=== PATIENT | male | born 1985 | race African-American/Black ===

== ENCOUNTER 2016-12-16 12:41 | Emergency (ER) | payer OTHER ==
[~2016-12-16] VITALS: Ht 190.5 cm; Wt 150.0 kg
[~2016-12-16 12:41] MED LIST: GABA300C5 PO; LEVE500 PO; LISI-515 PO
[2016-12-16 12:42] VITALS: BP 126/75; PULSE 95; RESP 18; TEMP 98.3; O2SAT 93
[2016-12-16 12:48] VITALS: BP 126/75; PULSE 92; RESP 18; TEMP 98.7; O2SAT 95
[2016-12-16] MEDS ORDERED: SODIUM CHLOR 0.9% 1000 ML INJ 1,000 ML IV ONE (13:02)
--- NOTE | 2016-12-16 13:02 | PD ---
HPI Chief Complaint: Seizure Time Seen by Provider: 13:00 Travel History International Travel<30 days: No Contact w/Intl Traveler<30days: No Traveled to known affect area: No History of Present Illness HPI 31-year-old Afro-Cuban male brought in by ambulance status post seizure. 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 Patient is postictal but alert and oriented at this time. Patient is complaining of right shoulder pain, and a 3 out of 10 headache. He denies any other injury. Patient states he feels he has been compliant with his Keppra but he has a history of noncompliance in the past. He is also taking gabapentin. He denies any other acute medical history. Patient was last seen here mid October for similar presentation. He is allergic to Phenergan. PFSH Past Medical History Asthma: Yes Blood Disorders: No Bipolar Disorder: Yes Cardiovascular Problems: Yes (HTN) Diminished Hearing: No Gastrointestinal Disorders: No Headaches: Yes Heparin Induced Thrombocytopen: No Hypertension: Yes Implanted Vascular Access Dvce: No Neurologic: Yes (seizure disorder) Reproductive: No Respiratory: Yes (ASTHMA) Immunizations Current: Yes Seizures: Yes Past Surgical History Neurologic Surgery: No Oral Surgery: Yes (FRACTURE JAW REPAIR) Tympanostomy Tube: Yes Other Surgery: No Social History Alcohol Use: No Tobacco Use: Yes (1/4 PACK A DAY ) Substance Use: No Allergies-Medications (Allergen,Severity, Reaction): Coded Allergies: Phenergan (Verified Adverse Reaction, Severe, Psychosis, 11/02/16) Reported Meds & Prescriptions Reported Meds & Active Scripts Active Lisinopril 20 Mg Tab 20 Mg PO DAILY Keppra (Levetiracetam) 500 Mg Tab 500 Mg PO BID Gabapentin 300 Mg Cap 300 Mg PO TID Review of Systems Except as stated in HPI: all other systems reviewed are Neg General / Constitutional: No: Fever Eyes: No: Visual changes HENT: No: Headaches Cardiovascular: No: Chest Pain or Discomfort Respiratory: No: Shortness of Breath Gastrointestinal: No: Abdominal Pain Genitourinary: No: Dysuria Musculoskeletal: No: Pain Skin: No Rash Neurologic: No: Weakness Psychiatric: No: Depression Endocrine: No: Polydipsia Hematologic/Lymphatic: No: Easy Bruising Physical Exam Narrative GENERAL: Patient is postictal but no acute distress. SKIN: Warm and dry. Normal color. Normal turgor. No signs of trauma. HEAD: Atraumatic. Normocephalic. Nontender with palpation. EYES: Pupils equal and round. No scleral icterus. No injection or drainage. ENT: No nasal bleeding or discharge. Mucous membranes pink and moist. No dental injury. No buccal membrane or tongue injury. Airway is patent. Pharynx is normal. NECK: Trachea midline. No JVD. Supple nontender. CARDIOVASCULAR: Regular rate and rhythm. No murmurs gallops or rubs. RESPIRATORY: No accessory muscle use. Clear to auscultation. Breath sounds equal bilaterally. GASTROINTESTINAL: Abdomen soft, non-tender, nondistended. Hepatic and splenic margins not palpable. MUSCULOSKELETAL: Extremities without clubbing, cyanosis, or edema. No obvious deformities. Patient has moderate generalized tenderness to the right shoulder along the posterior aspect, without signs of dislocation or fracture. NEUROLOGICAL: Awake and alert. No obvious cranial nerve deficits. Motor grossly within normal limits. Five out of 5 muscle strength in the arms and legs. Normal speech. PSYCHIATRIC: Appropriate mood and affect; insight and judgment normal. Data Data Last Documented VS Vital Signs Date Time Temp Pulse Resp B/P Pulse Ox O2 Delivery O2 Flow Rate FiO2 12/16/16 12:48 98.7 92 18 126/75 95 Nasal Cannula 2 Orders Basic Metabolic Panel (Bmp) (12/16/16 13:02) Electrocardiogram (12/16/16 ) Ecg Monitoring (12/16/16 13:02) Iv Access Insert/Monitor (12/16/16 13:02) Oximetry (12/16/16 13:02) Sodium Chlor 0.9% 1000 Ml Inj (Ns 1000 M (12/16/16 13:02) Sodium Chloride 0.9% Flush (Ns Flush) (12/16/16 13:15) Shoulder, Complete (>2vws) (12/16/16 13:02) Levetiracetam Inj (Keppra Inj) (12/16/16 13:15) Levetiracetam (Keppra) (12/16/16 14:00) Labs Laboratory Tests Test 12/16/16 13:37 Sodium Level 140 MEQ/L Potassium Level 4.4 MEQ/L Chloride Level 109 MEQ/L Carbon Dioxide Level 27.3 MEQ/L Anion Gap 4 MEQ/L Blood Urea Nitrogen 11 MG/DL Creatinine 1.23 MG/DL Estimat Glomerular Filtration 84 ML/MIN Rate Random Glucose 72 MG/DL Calcium Level 9.0 MG/DL [facility] Medical Decision Making Medical Screen Exam Complete: Yes Emergency Medical Condition: Yes Differential Diagnosis Seizure. Postictal. Right shoulder injury. Muscle fracture. Narrative Course Patient is medically stable upon exam. CMP is ordered. IV access is obtained patient is given milligrams IV. X-ray of the right shoulder is ordered. X-rays unremarkable for acute process. CMP is normal. Patient is given 500 mg Keppra by mouth. Patient is felt stable for discharge. Patient follow with his neurologist as needed. Diagnosis Primary Impression: Seizure disorder Additional Impression: Right shoulder pain Qualified Code: M25.511 - Acute pain of right shoulder Referrals: Neurologist Patient Instructions: General Instructions Additional Instructions: Follow-up with Neurologist. Med/Other Pt SpecificInfo: No Change to Meds Disposition: 01 DISCHARGE HOME Condition: Stable Moncho Mason Dec 16, 2016 13:01
[2016-12-16] MEDS ORDERED: SODIUM CHLORIDE 0.9% FLUSH 5 ML FLUSH IVF PRN (13:15)
[2016-12-16] MEDS ORDERED: levETIRAcetam INJ 500 MG in SODIUM CHLORIDE 0.9% INJ 100 ML IV ONE (13:15)
--- NOTE | 2016-12-16 13:57 | PD ---
Data Data Last Documented VS Vital Signs Date Time Temp Pulse Resp B/P Pulse Ox O2 Delivery O2 Flow Rate FiO2 12/16/16 12:48 98.7 92 18 126/75 95 Nasal Cannula 2 Orders Basic Metabolic Panel (Bmp) (12/16/16 13:02) Electrocardiogram (12/16/16 ) Ecg Monitoring (12/16/16 13:02) Iv Access Insert/Monitor (12/16/16 13:02) Oximetry (12/16/16 13:02) Sodium Chlor 0.9% 1000 Ml Inj (Ns 1000 M (12/16/16 13:02) Sodium Chloride 0.9% Flush (Ns Flush) (12/16/16 13:15) Shoulder, Complete (>2vws) (12/16/16 13:02) Levetiracetam Inj (Keppra Inj) (12/16/16 13:15) Levetiracetam (Keppra) (12/16/16 14:00) MDM Supervised Visit with DELANO: Yes Narrative Course I, Dr. Álvarez, have reviewed the advance practice practioner's documentation and am in agreement, met with the patient face to face, made the diagnosis, and the medical decision making was done by me. *My assessment and Findings: 31 year-old -[place]ian male with history of seizure disorder on Keppra ran out of his Keppra 3 days ago. Had seizure on the way to the pharmacy. Patient initially postictal but now back to mental status baseline and notes only right sided shoulder pain. History of previous surgery to the shoulder. Pain is made worse with external rotation and abduction greater than 90. Otherwise exam unremarkable. Differential includes medication nonadherence, breakthrough seizure, electrolyte abnormality , rotator cuff strain, chronic right shoulder pain, shoulder dislocation and/or fracture. Will give oral Keppra, obtain x-ray and BMP for hopeful disposition home. Kenya Álvarez MD Dec 16, 2016 13:57 allergic to Phenergan. Kenya Álvarez MD Dec 16, 2016 13:57
[2016-12-16] MEDS ORDERED: levETIRAcetam 500 MG TAB PO ONE (14:00)
[2016-12-16 14:09] LABS: BICARBONATE 27.3 MEQ/L (21.0-32.0); POTASSIUM 4.4 MEQ/L (3.5-5.1)
[2016-12-16 14:39] VITALS: O2SAT 95
--- NOTE | 2016-12-16 14:45 | RADRPT ---
EXAM DATE/TIME: 12/16/2016 13:45 [facility] COMPARISON: SHOULDER RIGHT COMPLETE (>2VWS), February 03, 2013, 23:12. INDICATIONS: Pain in shoulder post seizure. MEDICAL HISTORY: None. SURGICAL HISTORY: None. ENCOUNTER: Initial ACUITY: 1 day PAIN SCORE: 3/10 LOCATION: Right shoulder. FINDINGS: There is a Hill-Sachs deformity of the humeral head with degenerative changes about the glenoid. Acute fracture is not appreciated. CONCLUSION: Degenerative changes. Jordi Sma MD FACR on December 16, 2016 at 14:11 Board Certified Radiologist. This report was verified electronically.
[2017-04-06] MEDS ORDERED: LISI-515 PO ×2 (10:55→10:56)
== END 2016-12-16 14:39 | disposition home or self-care (01) ==
LOC: NEPE 12:41
DX: R56.9 Unspecified convulsions (principal); M25.511 Pain in right shoulder; R51 Headache; J45.909 Unspecified asthma, uncomplicated; I10 Essential (primary) hypertension; F17.210 Nicotine dependence, cigarettes, uncomplicated
CPT/HCPCS: 73030; 80048

== ENCOUNTER 2016-12-30 13:48 | Emergency (ER) | payer OTHER ==
[~2016-12-30] VITALS: Ht 188 cm; Wt 114.0 kg
--- NOTE | 2016-12-30 14:11 | PD ---
HPI Chief Complaint: SEIZURE Time Seen by Provider: 14:11 Travel History International Travel<30 days: No Contact w/Intl Traveler<30days: No History of Present Illness HPI 31-year-old male with a history of seizure disorder and hypertension is brought to the emergency department by EMS for evaluation of fall. Per EMS report the patient was found unresponsive with bleeding from his mouth in the parking lot of [employer] at the mall. Bystanders called EMS because the patient was found unresponsive, bystander reported that there may have been some seizure-like activity. EMS reports that the patient was initially unresponsive and postictal but has been waking up and becoming more responsive since initial evaluation. Patient is now awake and able to tell me that he did have a seizure today. States that he last took his Keppra 1 week ago. He is complaining of pain in his mouth and a headache. He denies any nausea or vomiting, lightheadedness, dizziness, neck pain, back pain, numbness or tingling , weakness, chest pain, shortness breath, abdominal pain. No urinary or bowel incontinence. He denies alcohol or drug use. No other complaints. PFSH Past Medical History Asthma: Yes Blood Disorders: No Bipolar Disorder: Yes Cardiovascular Problems: Yes (HTN) Diminished Hearing: No Gastrointestinal Disorders: No Headaches: Yes Heparin Induced Thrombocytopen: No Hypertension: Yes Implanted Vascular Access Dvce: No Neurologic: Yes (seizure disorder) Reproductive: No Respiratory: Yes (ASTHMA) Immunizations Current: Yes Seizures: Yes Past Surgical History Neurologic Surgery: No Oral Surgery: Yes (FRACTURE JAW REPAIR) Tympanostomy Tube: Yes Other Surgery: No Social History Alcohol Use: No Tobacco Use: Yes (1/4 PACK A DAY ) Substance Use: No Allergies-Medications (Allergen,Severity, Reaction): Coded Allergies: Phenergan (Verified Adverse Reaction, Severe, Psychosis, 12/30/16) Reported Meds & Prescriptions Reported Meds & Active Scripts Active Amoxicillin 875 Mg Tab 875 Mg PO BID 10 Days Keppra (Levetiracetam) 500 Mg Tab 500 Mg PO BID Lisinopril 20 Mg Tab 20 Mg PO DAILY Keppra (Levetiracetam) 500 Mg Tab 500 Mg PO BID Gabapentin 300 Mg Cap 300 Mg PO TID Review of Systems Except as stated in HPI: all other systems reviewed are Neg Physical Exam Narrative GENERAL: Well-nourished and well-developed pleasant patient in no acute distress. Backboarded initially with no cervical collar in place per EMS report no size was big enough to fit the patient. SKIN: Facial abrasions. Laceration to inner lower lip. HEAD: Normocephalic and atraumatic. Swelling of the upper lip with abrasions and tenderness of the maxilla. EYES: No scleral icterus, injection, or drainage. PERRLA. EOMI. No hyphema present. ENT: Left upper anterior front tooth has been knocked out. No septal hematoma or hemotympanum noted. Oropharynx is clear and the airway is patent. NECK: Supple and the trachea is midline. No obvious deformities, crepitus, or midline tenderness noted. CARDIOVASCULAR: Regular rate and rhythm. RESPIRATORY: Breath sounds are equal bilaterally with no accessory muscle use, wheezing, rhonchi, or crackles. GASTROINTESTINAL: Abdomen is soft, non-tender, and nondistended. MUSCULOSKELETAL: No obvious deformities, swelling, cyanosis, or ecchymosis is present throughout the upper and lower extremities. Patient has full range of motion without any signs of neurovascular compromise. Strength 5/5 upper and lower extremities and equal bilaterally. BACK: Nontender without any obvious deformities, bony point tenderness, or crepitus noted throughout the thoracic and lumbar vertebrae. NEUROLOGICAL: Awake, alert, and oriented. Normal speech and gait. Cranial nerves are grossly intact. Data Data Last Documented VS Vital Signs Date Time Temp Pulse Resp B/P Pulse Ox O2 Delivery O2 Flow Rate FiO2 12/30/16 18:08 100 Room Air 12/30/16 18:08 71 20 139/86 12/30/16 14:28 98.5 Orders Complete Blood Count With Diff (12/30/16 14:09) Basic Metabolic Panel (Bmp) (12/30/16 14:09) Electrocardiogram (12/30/16 ) Ct Brain W/O Iv Contrast(Rout) (12/30/16 ) Ecg Monitoring (12/30/16 14:09) Iv Access Insert/Monitor (12/30/16 14:09) Oximetry (12/30/16 14:09) Ct Cerv Spine W/O Contrast (12/30/16 14:09) Ct Facial Bones W/O Iv Cont (12/30/16 14:09) Tetanus/Diphtheria Tox Adult (Tetanus/Di (12/30/16 17:30) Levetiracetam (Keppra) (12/30/16 17:30) Lidocai-Epi 1%-1:100,000 Inj (Xylocaine- (12/30/16 17:45) Labs Laboratory Tests Test 12/30/16 17:05 White Blood Count 8.9 TH/MM3 Red Blood Count 5.63 MIL/MM3 Hemoglobin 13.8 GM/DL Hematocrit 42.4 % Mean Corpuscular Volume 75.4 FL Mean Corpuscular Hemoglobin 24.4 PG Mean Corpuscular Hemoglobin 32.4 % Concent Red Cell Distribution Width 16.3 % Platelet Count 310 TH/MM3 Mean Platelet Volume 7.4 FL Neutrophils (%) (Auto) 77.5 % Lymphocytes (%) (Auto) 14.2 % Monocytes (%) (Auto) 5.6 % Eosinophils (%) (Auto) 2.3 % Basophils (%) (Auto) 0.4 % Neutrophils # (Auto) 6.9 TH/MM3 Lymphocytes # (Auto) 1.3 TH/MM3 Monocytes # (Auto) 0.5 TH/MM3 Eosinophils # (Auto) 0.2 TH/MM3 Basophils # (Auto) 0.0 TH/MM3 CBC Comment AUTO DIFF Differential Comment AUTO DIFF CONFIRMED Platelet Estimate NORMAL Platelet Morphology Comment NORMAL Sodium Level 139 MEQ/L Potassium Level 4.2 MEQ/L Chloride Level 106 MEQ/L Carbon Dioxide Level 26.2 MEQ/L Anion Gap 7 MEQ/L Blood Urea Nitrogen 10 MG/DL Creatinine 0.90 MG/DL Estimat Glomerular Filtration 120 ML/MIN Rate Random Glucose 84 MG/DL Calcium Level 9.2 MG/DL MDM Medical Decision Making Medical Screen Exam Complete: Yes Emergency Medical Condition: Yes Differential Diagnosis Seizure disorder versus facial fracture versus contusion versus medication noncompliance Narrative Course 31-year-old male presents to the emergency room by EMS for evaluation of fall secondary to seizure. Patient is afebrile, vital signs are stable. The patient reports that he has not taken his Keppra in the past week and in that he does report having a seizure today. He apparently fell onto his face. There is evidence of biting his lower lip. He did also lose the left upper anterior tooth. No focal neurologic deficits. CT imaging of the head, facial bones and cervical spine has been ordered and is pending. IV access is obtained , labs have been drawn and sent. Head CT is negative for any Abnormalities. CT of the maxillofacial bones is negative for any acute abnormalities. CT of cervical spine is negative for any acute abnormality. CBC and BMP are unremarkable. Patient has remained stable and without complaint while here in the emergency department. Laceration repair of lower lip laceration is performed, see procedure narrative. Patient is given an oral dose of Keppra 500 mg here in the emergency department. He's had no further seizures while here in the ED. The patient has had a breakthrough seizure secondary to medication noncompliance. Chest the importance of compliance with medication regimen and outpatient follow-up. I discussed the case with my attending physician Dr. Martinez who is aware of the patients history, physical examination findings, and treatment plan. Procedures Procedure Narrative LACERATION LOCATION: Lower inner lip LENGTH: 2 cm NUMBER OF STITCHES/BONIFACIO: 4 sutures REPAIR: The area of the laceration was prepped with Betadine and sterilely draped. The laceration was infiltrated with 1% lidocaine with epinephrine. The wound was copiously irrigated and explored without evidence of foreign body , tendon injury or neurovascular injury. The wound was closed using 4. 0 Vicryl sutures. This was a single layer repair. A sterile dressing was applied. The patient was advised to keep the dressing clean and dry. Patient tolerated the procedure well. Diagnosis Primary Impression: Seizure disorder Additional Impressions: Non-compliance Lip laceration Qualified Code: S01.511A - Lip laceration, initial encounter Tooth avulsion Qualified Code: S03.2XXA - Tooth avulsion, initial encounter Referrals: Dentist Neurologist Patient Instructions: General Instructions Additional Instructions: Apply ice 20 minutes on 20 minutes off to decrease swelling in the lip. Take medications as prescribed with food and a full glass of water. Follow-up with your Dentist and neurologist. Return to the ED for any acute worsening of symptoms. Med/Other Pt SpecificInfo: Prescription(s) given Scripts Amoxicillin 875 Mg [id number] Mg PO BID 10 Days Ref 0 Prov:Hafsa Martinez MD 12/30/16 Levetiracetam (Keppra)500 Mg [id number] Mg PO BID #60 TAB Ref 0 Prov:Hafsa Martinez MD 12/30/16 Disposition: 01 DISCHARGE HOME Condition: Stable Rachna Harrington Dec 30, 2016 14:11
[2016-12-30 14:28] VITALS: BP 148/88; PULSE 75; RESP 16; TEMP 98.5; O2SAT 99
--- NOTE | 2016-12-30 15:16 | RADRPT ---
EXAM DATE/TIME: 12/30/2016 14:42 [facility] COMPARISON: CT CERVICAL SPINE W/O CONTRAST, December 30, 2016, 14:44. CT BRAIN W/O CONTRAST, September 11, 2016, 2 0:59. INDICATIONS : Found unrepsonsive; fall; postictal. RADIATION DOSE: 56.35 CTDIvol (mGy) MEDICAL HISTORY : Seizures. Cardiovascular disease Hypertension. SURGICAL HISTORY : Mandible surgery. ENCOUNTER: Initial ACUITY: 1 day PAIN SCALE: Non-responsive LOCATION: cranial TECHNIQUE: Multiple contiguous axial images were obtained of the head. Using automated exposure control and adj ustment of the mA and/or kV according to patient size, radiation dose was kept as low as reasonably a chievable to obtain optimal diagnostic quality images. FINDINGS: CEREBRUM: The ventricles are normal for age. No evidence of midline shift, mass lesion, hemorrhage or acute in farction. No extra-axial fluid collections are seen. POSTERIOR FOSSA: The cerebellum and brainstem are intact. The 4th ventricle is midline. The cerebellopontine angle i s unremarkable. EXTRACRANIAL: The visualized portion of the orbits is intact. SKULL: The calvaria is intact. No evidence of skull fracture. CONCLUSION: No acute intracranial findings. Hans Samayoa MD on December 30, 2016 at 15:11 Board Certified Radiologist. This report was verified electronically.
--- NOTE | 2016-12-30 15:26 | RADRPT ---
EXAM DATE/TIME: 12/30/2016 14:42 [facility] COMPARISON: CT FACIAL BONES W/O CONTRAST, November 03, 2012, 15:46. INDICATIONS : Found unrepsonsive; fall; postictal. RADIATION DOSE: 21.96 CTDIvol (mGy) MEDICAL HISTORY : Hypertension. Seizures. Cardiovascular disease SURGICAL HISTORY : Mandible surgery ENCOUNTER: Initial ACUITY: 1 day PAIN SCORE: Non-responsive LOCATION: facial TECHNIQUE: Volumetric scanning of the facial bones was performed. Using automated exposure control and adjustme nt of the mA and/or kV according to patient size, radiation dose was kept as low as reasonably achiev able to obtain optimal diagnostic quality images. FINDINGS: ORBITS: The orbital and infraorbital osseous structures are intact. The retroconal structures have a normal configuration. No radiopaque foreign bodies are seen. NASAL BONE: The nasal bone and maxillary spine are intact ZYGOMATIC ARCHES: Symmetric without evidence of fracture. SINUSES: The maxillary, ethmoid and frontal sinuses are intact. No air-fluid levels seen. NASAL CAVITY: The nasal septum is intact and midline. The lacrimal ducts are intact. SOFT TISSUES: No radiopaque foreign bodies seen. No soft-tissue swelling is seen. INTRACRANIAL: No intracranial air seen. OTHER: Evidence of old mandibular fracture with internal fixation plate and transfixing screws in place in t he body of the mandible. Deformity of the mandibular condyles indicating old healed fractures. There is prominent medial angulation of the mandibular condyles bilaterally. Old left mandibular coronoid p rocess fracture. Absent left sided first maxillary incisor. CONCLUSION: 1. No acute fractures identified. 2. Evidence of old mandibular fractures with metallic plate in the body the mandible and deformity of the mandibular condyles with medial angulation bilaterally. Hans Samayoa MD on December 30, 2016 at 15:15 Board Certified Radiologist. This report was verified electronically.
--- NOTE | 2016-12-30 15:39 | RADRPT ---
EXAM DATE/TIME: 12/30/2016 14:44 [facility] COMPARISON: CT CERVICAL SPINE W/O CONTRAST, November 24, 2014, 0:00. INDICATIONS : Found unrepsonsive; fall; postictal. RADIATION DOSE: 28.88 CTDIvol (mGy) MEDICAL HISTORY : Seizures. Hypertension. Cardiovascular disease SURGICAL HISTORY : Mandible surgery ENCOUNTER: Initial ACUITY: 1 day PAIN SCALE: Non-responsive LOCATION: neck TECHNIQUE: Volumetric scanning of the cervical spine was performed. Multiplanar reconstructions in the sagittal, coronal and oblique axial planes were performed. Using automated exposure control and adjustment o f the mA and/or kV according to patient size, radiation dose was kept as low as reasonably achievable to obtain optimal diagnostic quality images. FINDINGS: VERTEBRAE: Normal vertebral body height. ALIGNMENT: No evidence of subluxation. C2-C3: Broad-based disc osteophyte complex. Bilateral facet arthrosis. Central canal diameter within normal limits. Neural foraminal diameter is within normal limits. C3-C4: Central disc protrusion. New when compared to prior study Mild central canal narrowing. Neural forami nal diameter is within normal limits. C4-C5: No evidence of focal disc protrusion. Central canal normal diameter. Neural foraminal diameters withi n normal limits. C5-C6: Broad-based disc osteophyte complex. Central canal diameter within normal limits. Neural foraminal di ameters within normal limits. Mild right-sided facet arthrosis. C6-C7: No evidence of focal disc protrusion. Central canal normal diameter. Neural foraminal diameters withi n normal limits. C7-T1: No evidence of focal disc protrusion. Central canal normal diameter. Neural foraminal diameters withi n normal limits. CONCLUSION: 1. No evidence of fracture. 2. Degenerative findings of the cervical spine. Central disc protrusion at C3-4 resulting in mild roxana tral canal narrowing. Hans Samayoa MD on December 30, 2016 at 15:25 Board Certified Radiologist. This report was verified electronically.
[2016-12-30 17:22] LABS: AUTOMATED NEUTROPHIL # 6.9 TH/MM3 (1.8-7.7); BASOPHIL % 0.4 % (0.0-2.0); EOSINOPHIL # 0.2 TH/MM3 (0-0.4); EOSINOPHIL % 2.3 % (0.0-4.0); HEMATOCRIT 42.4 % (39.0-51.0); LYMPH % 14.2 % (9.0-44.0); LYMPHOCYTE # 1.3 TH/MM3 (1.0-4.8); MEAN CELL VOLUME 75.4 FL (80.0-100.0); MEAN CORPUSCULAR HEMOGLOBIN 24.4 PG (27.0-34.0); MEAN CORPUSCULAR HGB CONC 32.4 % (32.0-36.0); MONO % 5.6 % (0.0-8.0); NEUT % 77.5 % (16.0-70.0); PLATELET COUNT 310 TH/MM3 (150-450); RED BLOOD COUNT 5.63 MIL/MM3 (4.50-5.90); RED CELL DISTRIBUTION WIDTH 16.3 % (11.6-17.2); WHITE BLOOD COUNT 8.9 TH/MM3 (4.0-11.0)
[2016-12-30 17:30] LABS: HEMO FLAGS AUTO DIFF
[2016-12-30] MEDS ORDERED: TETANUS/DIPHTHERIA TOXOID ADULT 0.5 ML VIAL IM ONE (17:30)
[2016-12-30] MEDS ORDERED: levETIRAcetam 500 MG TAB PO ONE (17:30)
[2016-12-30] MEDS ORDERED: LIDOCAINE 1%/EPINEPHrine 1:100,000 SOLN 20 ML VIAL INFIL ONE (17:45)
[2016-12-30 17:49] LABS: BICARBONATE 26.2 MEQ/L (21.0-32.0); POTASSIUM 4.2 MEQ/L (3.5-5.1)
[2016-12-30 18:08] VITALS: BP 139/86; PULSE 71; RESP 20; O2SAT 100
[2016-12-30] MEDS ORDERED: LEVE500 PO (18:57)
[2016-12-30] MEDS ORDERED: AMOX875T PO (18:57)
[2016-12-30 18:58] LABS: PLATELET ESTIMATE SMEAR NORMAL (NORMAL); PLATELET MORPHOLOGY NORMAL (NORMAL); SCAN/DIFF AUTO DIFF CONFIRMED
--- NOTE | 2017-01-01 12:26 | EKG ---
Date Performed: 12/30/2016 Time Performed: 17:59:38 PTAGE: 31 years EKG: Sinus rhythm Since previous tracing, no significant change noted NORMAL ECG PREVIOUS TRACING : 07/07/2016 23.59 DOCTOR: Cornell Pino Interpretating Date/Time 01/01/2017 12:24:48
[2017-04-06] MEDS ORDERED: LISI-515 PO ×2 (10:55→10:56)
== END 2016-12-30 20:32 | disposition home or self-care (01) ==
LOC: NEPC 13:48
DX: R56.9 Unspecified convulsions (principal); S03.2XXA Dislocation of tooth, initial encounter; S01.511A Laceration without foreign body of lip, initial encounter; S00.91XA Abrasion of unspecified part of head, initial encounter; J45.909 Unspecified asthma, uncomplicated; I10 Essential (primary) hypertension; F17.210 Nicotine dependence, cigarettes, uncomplicated; Z91.14 Patient's other noncompliance with medication regimen; Z23 Encounter for immunization
CPT/HCPCS: 12011; 70450; 70486; 72125; 80048; 85025; 90471; 90714; 93005

== ENCOUNTER 2017-01-13 19:14 | Emergency (ER) | payer OTHER ==
[~2017-01-13] VITALS: Ht 190.5 cm; Wt 150.0 kg
[~2017-01-13 19:14] MED LIST changes: +AMOX875T PO
[2017-01-13 19:21] VITALS: BP 142/82; PULSE 80; RESP 16; TEMP 98.6; O2SAT 100
[2017-01-13] MEDS ORDERED: LORazepam 2 MG/ML VIAL IV PUSH PRN (19:45)
--- NOTE | 2017-01-13 19:47 | PD ---
HPI . Seizure Chief Complaint: Seizure Time Seen by Provider: 19:29 Travel History International Travel<30 days: No Contact w/Intl Traveler<30days: No Traveled to known affect area: No History of Present Illness HPI Patient presents status post seizure. He has a known seizure disorder. He is on Keppra and gabapentin for his seizure disorder and states that he has been compliant. He denies any injury associated with the seizure. PFSH Past Medical History Asthma: Yes Blood Disorders: No Bipolar Disorder: Yes Cardiovascular Problems: Yes (HTN) Diminished Hearing: No Gastrointestinal Disorders: No Headaches: Yes Heparin Induced Thrombocytopen: No Hypertension: Yes Implanted Vascular Access Dvce: No Neurologic: Yes (seizure disorder) Reproductive: No Respiratory: Yes (ASTHMA) Immunizations Current: Yes Pneumonia: Yes Seizures: Yes Tetanus Vaccination: < 5 Years Influenza Vaccination: Yes Past Surgical History Neurologic Surgery: No Oral Surgery: Yes (FRACTURE JAW REPAIR) Tympanostomy Tube: Yes Other Surgery: No Social History Alcohol Use: No Tobacco Use: Yes (3-4 CIGARETTES PER DAY) Substance Use: No Allergies-Medications (Allergen,Severity, Reaction): Coded Allergies: Phenergan (Verified Adverse Reaction, Severe, Psychosis, 01/13/17) Reported Meds & Prescriptions Reported Meds & Active Scripts Active Lisinopril 20 Mg Tab 20 Mg PO DAILY Keppra (Levetiracetam) 500 Mg Tab 500 Mg PO BID Gabapentin 300 Mg Cap 300 Mg PO TID Review of Systems Except as stated in HPI: all other systems reviewed are Neg Eyes: No: Blurred Vision HENT: No: Headaches Musculoskeletal: No: Myalgias, Arthralgias Neurologic: Positive: Seizures, No: Focal Abnormalities, Incontinence Physical Exam Narrative GENERAL: Patient is currently awake and alert and in no acute distress. SKIN: Warm and dry. HEAD: Atraumatic. Normocephalic. EYES: Pupils equal and round. ENT: No nasal bleeding or discharge. Mucous membranes pink and moist. He has some swelling of his lower lip secondary to a lip laceration which he sustained when his last seizure December 30. No new injury to the mouth. NECK: Trachea midline. Neck is supple. CARDIOVASCULAR: Regular rate and rhythm. Heart sounds are normal. RESPIRATORY: No accessory muscle use. Lungs GASTROINTESTINAL: Abdomen soft, non-tender, nondistended. MUSCULOSKELETAL: No obvious deformities. No edema. NEUROLOGICAL: Awake and alert. No obvious cranial nerve deficits. Motor grossly within normal limits. Normal speech. PSYCHIATRIC: Appropriate mood and affect; insight and judgment normal. Data Data Last Documented VS Vital Signs Date Time Temp Pulse Resp B/P Pulse Ox O2 Delivery O2 Flow Rate FiO2 01/13/17 19:21 98.6 80 16 142/82 100 Room Air Orders Levetiracetam (01/13/17 19:41) ^ Saline Lock (01/13/17 19:41) Lorazepam Inj (Ativan Inj) (01/13/17 19:45) MDM Medical Decision Making Medical Screen Exam Complete: Yes Emergency Medical Condition: Yes Medical Record Reviewed: Yes Differential Diagnosis Differential diagnosis includes breakthrough seizure, medication noncompliance, head injury, electrolyte disturbance. Narrative Course Patient presents status post a seizure. It sounds like he had his usual seizure. He reports compliance with medication. We are unable to check a Keppra level here so I have ordered that. I have ordered PRN Ativan. 22:15 no further sz activity. I am told that we will not have the results of the Keppra level tonight. Diagnosis Primary Impression: Seizure disorder Patient Instructions: General Instructions, Recurrent Seizures in Adults (DC) Disposition: 01 DISCHARGE HOME Condition: Stable Joelle Velez MD Jan 13, 2017 19:47
[2017-01-13 22:49] VITALS: BP 134/68; PULSE 80; RESP 16; O2SAT 100
[2017-04-06] MEDS ORDERED: LISI-515 PO ×2 (10:55→10:56)
== END 2017-01-13 23:01 | disposition home or self-care (01) ==
LOC: NEPC 19:14
DX: G40.909 Epilepsy, unspecified, not intractable, without status epilepticus (principal); I10 Essential (primary) hypertension; F17.210 Nicotine dependence, cigarettes, uncomplicated
CPT/HCPCS: 80177; 99284

== ENCOUNTER 2017-01-26 23:18 | Emergency (ER) | payer OTHER ==
[~2017-01-26 23:18] MED LIST changes: -AMOX875T PO
--- NOTE | 2017-01-26 23:20 | PD ---
HPI Chief Complaint: seizure Time Seen by Provider: 23:20 Travel History International Travel<30 days: No Contact w/Intl Traveler<30days: No Traveled to known affect area: No History of Present Illness HPI 32-year-old male who is well-known to the department due to his multiple visits came to the emergency room brought by EMS after having a seizure at work. Patient is not very forthcoming with the history. His vital signs as per EMS were stable. He is on Keppra and gabapentin for his seizures he said. He takes them like he supposed to and he has medications at home as well. His last dose was this afternoon. Currently he is awake. [facility] Past Medical History Narrative Medical List of his past medical, surgical, social and family history is reviewed from the nursing note. Asthma: Yes Blood Disorders: No Bipolar Disorder: Yes Cardiovascular Problems: Yes (HTN) Diminished Hearing: No Gastrointestinal Disorders: No Headaches: Yes Heparin Induced Thrombocytopen: No Hypertension: Yes Implanted Vascular Access Dvce: No Neurologic: Yes (seizure disorder) Reproductive: No Respiratory: Yes (ASTHMA) Immunizations Current: Yes Pneumonia: Yes Seizures: Yes Past Surgical History Neurologic Surgery: No Oral Surgery: Yes (FRACTURE JAW REPAIR) Tympanostomy Tube: Yes Other Surgery: No Social History Alcohol Use: No Tobacco Use: Yes (3-4 CIGARETTES PER DAY) Substance Use: No Allergies-Medications (Allergen,Severity, Reaction): Coded Allergies: Phenergan (Verified Adverse Reaction, Severe, Psychosis, 01/27/17) Comments List of his allergies reviewed from the nursing note. Reported Meds & Prescriptions Reported Meds & Active Scripts Active Keppra (Levetiracetam) 1,000 Mg Tab 1,000 Mg PO BID Lisinopril 20 Mg Tab 20 Mg PO DAILY Keppra (Levetiracetam) 500 Mg Tab 500 Mg PO BID Gabapentin 300 Mg Cap 300 Mg PO TID Narrative Medication List of his home medications reviewed from the nursing note. Review of Systems Except as stated in HPI: all other systems reviewed are Neg Physical Exam Narrative GENERAL: Awake, alert, morbidly obese, no obvious distress SKIN: Warm and dry. HEAD: Atraumatic. Normocephalic. EYES: Pupils equal and round. No scleral icterus. No injection or drainage. ENT: No nasal bleeding or discharge. Mucous membranes pink and moist. No tongue on the bite NECK: Trachea midline. No JVD. CARDIOVASCULAR: Regular rate and rhythm. No murmur appreciated. RESPIRATORY: No accessory muscle use. Clear to auscultation. Breath sounds equal bilaterally. GASTROINTESTINAL: Abdomen soft, non-tender, nondistended. Hepatic and splenic margins not palpable. MUSCULOSKELETAL: No obvious deformities. No clubbing. No cyanosis. No edema. NEUROLOGICAL: Awake and alert. No obvious cranial nerve deficits. Motor grossly within normal limits. Normal speech. PSYCHIATRIC: Appropriate mood and affect; insight and judgment normal. Data Data Last Documented VS Vital Signs Date Time Temp Pulse Resp B/P Pulse Ox O2 Delivery O2 Flow Rate FiO2 01/26/17 23:30 98.8 85 20 162/83 97 01/26/17 23:30 Room Air Orders MDM Medical Decision Making Medical Screen Exam Complete: Yes Emergency Medical Condition: Yes Medical Record Reviewed: Yes Differential Diagnosis Seizure disorder Narrative Course 12:02 AM patient has remained seizure free. His last set of blood test was done on the of last month which was less than 2 weeks ago. They were all within normal limits. I'm comfortable discharging him home. Procedures EKG Prior to Arrival: No Diagnosis Primary Impression: Seizure disorder Additional Impression: Morbid obesity Qualified Code: E66.01 - Morbid obesity, unspecified obesity type Referrals: Primary Care Physician 3 days Additional Instructions: Take double the dose of the Keppra than what you have been taking which will be 1000 mg twice a day and stop taking the previous dose. Not be driving or swimming until you have been cleared by a neurologist. Follow-up with the neurologist. Med/Other Pt SpecificInfo: Prescription(s) given, Other (Keppra changed to 1000 mg twice a day instead of 500 mg twice a day) Scripts Levetiracetam (Keppra)1,000 Mg Tab1,000 Mg PO BID #60 TAB Ref 0 Prov:Delgado Lantigua MD 01/27/17 Disposition: 01 DISCHARGE HOME Condition: Stable Delgado Lantigua MD Jan 26, 2017 23:20
[2017-01-26 23:30] VITALS: BP 162/83; PULSE 85; RESP 20; TEMP 98.8; O2SAT 97
[2017-01-27] MEDS ORDERED: KEPP10002 PO (00:06)
[2017-04-06] MEDS ORDERED: LISI-515 PO ×2 (10:55→10:56)
== END 2017-01-27 00:41 | disposition home or self-care (01) ==
LOC: NEPA 23:18
DX: G40.909 Epilepsy, unspecified, not intractable, without status epilepticus (principal); E66.01 Morbid (severe) obesity due to excess calories; F17.210 Nicotine dependence, cigarettes, uncomplicated
CPT/HCPCS: 99284

== ENCOUNTER 2017-01-27 04:44 | Emergency (ER) | payer OTHER ==
[~2017-01-27] VITALS: Ht 177.8 cm; Wt 100.0 kg
[~2017-01-27 04:44] MED LIST changes: +KEPP10002 PO
[2017-01-27 04:51] VITALS: PULSE 75
--- NOTE | 2017-01-27 05:24 | PD ---
HPI Chief Complaint: Medical Clearance Time Seen by Provider: 05:04 Travel History International Travel<30 days: No Contact w/Intl Traveler<30days: No Traveled to known affect area: No History of Present Illness HPI Patient is a 32-year-old male who is here multiple times for seizures. He takes Keppra and gabapentin for his seizures. Per EMS he was arguing with police today when he lowered himself to the ground and acted as if he was having a seizure. There is no post ictal period witnessed. Patient refused any vitals or treatment by EMS. On arrival to the ED, he is refusing to speak to the physician or nursing staff. Instead he is threatening staff and covering his head with a sheet. PFSH Past Medical History Asthma: Yes Blood Disorders: No Bipolar Disorder: Yes Cardiovascular Problems: Yes (HTN) Diminished Hearing: No Gastrointestinal Disorders: No Headaches: Yes Heparin Induced Thrombocytopen: No Hypertension: Yes Implanted Vascular Access Dvce: No Neurologic: Yes (seizure disorder) Reproductive: No Respiratory: Yes (ASTHMA) Immunizations Current: Yes Pneumonia: Yes Seizures: Yes Past Surgical History Neurologic Surgery: No Oral Surgery: Yes (FRACTURE JAW REPAIR) Tympanostomy Tube: Yes Other Surgery: No Social History Alcohol Use: No Tobacco Use: Yes (3-4 CIGARETTES PER DAY) Substance Use: No Allergies-Medications (Allergen,Severity, Reaction): Coded Allergies: Phenergan (Verified Adverse Reaction, Severe, Psychosis, 01/27/17) Reported Meds & Prescriptions Reported Meds & Active Scripts Active Keppra (Levetiracetam) 1,000 Mg Tab 1,000 Mg PO BID Lisinopril 20 Mg Tab 20 Mg PO DAILY Keppra (Levetiracetam) 500 Mg Tab 500 Mg PO BID Gabapentin 300 Mg Cap 300 Mg PO TID Review of Systems ROS Limitations: Uncooperative Physical Exam Narrative GENERAL: Awake and alert, in no acute distress. SKIN: Warm and dry. HEAD: Atraumatic. Normocephalic. EYES: Pupils equal and round. No scleral icterus. Extraocular movements intact. ENT: Mucous membranes pink and moist. NECK: Trachea midline. No JVD. CARDIOVASCULAR: Regular rate and rhythm. No murmur appreciated. RESPIRATORY: No accessory muscle use. Clear to auscultation. Breath sounds equal bilaterally. MUSCULOSKELETAL: No obvious deformities. No clubbing. No cyanosis. No edema. NEUROLOGICAL: Awake and alert. No obvious cranial nerve deficits. Motor grossly within normal limits. Normal speech. PSYCHIATRIC: Appropriate mood and affect; insight and judgment normal. Data Data Last Documented VS Vital Signs Date Time Temp Pulse Resp B/P Pulse Ox O2 Delivery O2 Flow Rate FiO2 01/27/17 04:51 75 Orders Complete Blood Count With Diff (01/27/17 05:04) Comprehensive Metabolic Panel (01/27/17 05:04) Iv Access Insert/Monitor (01/27/17 05:04) MDM Medical Decision Making Medical Screen Exam Complete: Yes Emergency Medical Condition: Yes Medical Record Reviewed: Yes Differential Diagnosis Seizure versus medication noncompliance versus malingering Narrative Course Patient is a 32-year-old male brought in by EMS after an argument with police when he said he was having a seizure. There was no tonic-clonic movements witnessed, no postictal period. On arrival, patient is refusing to speak or communicate with staff other than threatening violence. Patient continues to cover his head and try and sleep. I attempted multiple times to speak with the patient and find out how he was feeling. He refused to have a conversation with me. We attempted to place the patient on the monitor and send labs when he threatened the nurse. Security was called and patient was escorted out of the hospital. Diagnosis Primary Impression: Seizure disorder Hafsa Martinez MD Jan 27, 2017 05:24
[2017-04-06] MEDS ORDERED: LISI-515 PO ×2 (10:55→10:56)
== END 2017-01-27 06:11 | disposition left against medical advice (07) ==
LOC: NEPE 04:44
DX: R56.9 Unspecified convulsions (principal); Z72.0 Tobacco use; I10 Essential (primary) hypertension; J45.909 Unspecified asthma, uncomplicated; F31.9 Bipolar disorder, unspecified
CPT/HCPCS: 99283

== ENCOUNTER 2017-02-17 18:59 | Emergency (ER) | payer OTHER ==
[~2017-02-17] VITALS: Ht 182.9 cm; Wt 100.0 kg
[2017-02-17 19:28] VITALS: BP 144/73; PULSE 89; RESP 18; TEMP 98; O2SAT 98
[2017-02-17 19:33] VITALS: BP 144/73; PULSE 83; RESP 18; TEMP 98; O2SAT 99
[2017-02-17] MEDS ORDERED: levETIRAcetam 1000 MG INJ 100 ML IV ONE (19:45)
[2017-02-17] MEDS ORDERED: LORazepam 1 MG TAB PO ONE (20:00)
[2017-02-17] MEDS ORDERED: levETIRAcetam 500 MG TAB PO ONE (20:00)
--- NOTE | 2017-02-17 20:12 | PD ---
HPI Chief Complaint: Seizure Time Seen by Provider: 20:05 Travel History International Travel<30 days: No Contact w/Intl Traveler<30days: No Traveled to known affect area: No History of Present Illness HPI 32-year-old male that presents to the ED for evaluation of seizure. Patient came here by kal for evaluation of this. Patient has a chronic history of seizures and takes gabapentin and Keppra. Patient is a frequent flyer and comes here often. Patient did suffer a abrasion to the back of his head from the seizure. Unclear if he hit his head. Patient is not very forthcoming with information. From what I was told by ED nurse patient apparently was combative when ambulance showed up and he has a history of noncompliance as well as combativeness with staff in the past. At this time he appears to be calm and is allowing us to do IV access. He denies any pain other than his head. Patient continues to go to sleep. He denies any other medical problem. No chest pain or shortness of breath. No other injuries. Patient states been up- to-date with his tetanus. From and was reported apparently patient was recently seen at the [facility] [place] about a week ago for something similar and per patient she's not been taking his Keppra for the past 2 days. Unclear as to why. Allergy to Phenergan. Again history is limited as patient is not very forthcoming with information. PFSH Past Medical History Asthma: Yes Blood Disorders: No Bipolar Disorder: Yes Cardiovascular Problems: Yes (HTN) Diminished Hearing: No Gastrointestinal Disorders: No Headaches: Yes Heparin Induced Thrombocytopen: No Hypertension: Yes Implanted Vascular Access Dvce: No Neurologic: Yes (seizure disorder) Reproductive: No Respiratory: Yes (ASTHMA) Immunizations Current: Yes Pneumonia: Yes Seizures: Yes Past Surgical History Neurologic Surgery: No Oral Surgery: Yes (FRACTURE JAW REPAIR) Tympanostomy Tube: Yes Other Surgery: No Social History Alcohol Use: No Tobacco Use: Yes (3-4 CIGARETTES PER DAY) Substance Use: No Allergies-Medications (Allergen,Severity, Reaction): Coded Allergies: Phenergan (Verified Adverse Reaction, Severe, Psychosis, 02/17/17) Reported Meds & Prescriptions Reported Meds & Active Scripts Active Keppra (Levetiracetam) 1,000 Mg Tab 1,000 Mg PO BID Gabapentin 300 Mg Cap 300 Mg PO TID Keppra (Levetiracetam) 500 Mg Tab 500 Mg PO BID Review of Systems ROS Limitations: Uncooperative Except as stated in HPI: all other systems reviewed are Neg Physical Exam Exam Limitations: Uncooperative Narrative GENERAL: SKIN: Warm and dry. HEAD: Atraumatic. Normocephalic. EYES: Pupils equal and round 4 mm reactive to light and accommodation. No scleral icterus. No injection or drainage. ENT: No nasal bleeding or discharge. Mucous membranes pink and moist. Tongue is midline. No uvula deviation. NECK: Trachea midline. No JVD. CARDIOVASCULAR: Regular rate and rhythm. No murmurs, S3, S4. RESPIRATORY: No accessory muscle use. Clear to auscultation. Breath sounds equal bilaterally. GASTROINTESTINAL: Abdomen soft, non-tender, nondistended. Hepatic and splenic margins not palpable. MUSCULOSKELETAL: Extremities without clubbing, cyanosis, or edema. No obvious deformities. Full range of motion of the upper and lower extremities bilaterally. 2+ pulses bilaterally. No lumbar, thoracic, cervical spine tenderness to palpation. NEUROLOGICAL: Awake and alert. No obvious cranial nerve deficits. Motor grossly within normal limits. Five out of 5 muscle strength in the arms and legs. Normal speech. PSYCHIATRIC: Somewhat agreesive mood and affect; insight and judgment normal. Data Data Last Documented VS Vital Signs Date Time Temp Pulse Resp B/P Pulse Ox O2 Delivery O2 Flow Rate FiO2 02/17/17 19:33 98.0 83 18 144/73 99 02/17/17 19:28 Room Air Orders Complete Blood Count With Diff (02/17/17 19:23) Basic Metabolic Panel (Bmp) (02/17/17 19:23) Alcohol (Ethanol) (02/17/17 19:23) Drug Screen, Random Urine (02/17/17 19:23) Levetiracetam (02/17/17 19:23) Ct Brain W/O Iv Contrast(Rout) (02/17/17 ) Levetiracetam 1000 Mg Inj (Keppra 1000 M (02/17/17 19:45) Lorazepam (Ativan) (02/17/17 20:00) Levetiracetam (Keppra) (02/17/17 20:00) Labs Laboratory Tests Test 02/17/17 19:55 White Blood Count 7.8 TH/MM3 Red Blood Count 5.33 MIL/MM3 Hemoglobin 13.0 GM/DL Hematocrit 39.7 % Mean Corpuscular Volume 74.4 FL Mean Corpuscular Hemoglobin 24.4 PG Mean Corpuscular Hemoglobin 32.8 % Concent Red Cell Distribution Width 15.2 % Platelet Count 341 TH/MM3 Mean Platelet Volume 8.2 FL Neutrophils (%) (Auto) 62.9 % Lymphocytes (%) (Auto) 23.4 % Monocytes (%) (Auto) 10.1 % Eosinophils (%) (Auto) 3.1 % Basophils (%) (Auto) 0.5 % Neutrophils # (Auto) 4.9 TH/MM3 Lymphocytes # (Auto) 1.8 TH/MM3 Monocytes # (Auto) 0.8 TH/MM3 Eosinophils # (Auto) 0.2 TH/MM3 Basophils # (Auto) 0.0 TH/MM3 CBC Comment AUTO DIFF Sodium Level 139 MEQ/L Potassium Level 3.9 MEQ/L Chloride Level 105 MEQ/L Carbon Dioxide Level 28.4 MEQ/L Anion Gap 6 MEQ/L Blood Urea Nitrogen 14 MG/DL Creatinine 1.07 MG/DL Estimat Glomerular Filtration 98 ML/MIN Rate Random Glucose 134 MG/DL Calcium Level 9.1 MG/DL Ethyl Alcohol Level LESS THAN 3 MG/DL MDM Medical Decision Making Medical Screen Exam Complete: Yes Emergency Medical Condition: Yes Medical Record Reviewed: Yes Interpretation(s) Last Impressions Head CT 02/17/17 0000 Signed Impressions: Service Date/Time: Monday, February 17, 2017 20:06 - CONCLUSION: Stable brain. No acute intracranial findings Bright Portillo MD CBC & BMP Diagram 02/17/17 19:55 Differential Diagnosis Seizure versus head injury versus noncompliance Narrative Course 32-year-old male that presents to the ED for evaluation of seizure. Patient was properly examined and was found to have signs and symptoms consistent what appears to be seizure. Patient has been noncompliant with his medications for 2 days. Per my examination patient was not forthcoming with information and cannot and cooperative but not aggressive. Patient did start to become aggressive that there IV was attempted multiple times. My attending Dr. Short evaluated the patient and was able to get some blood from the patient. CT of the head was ordered as patient did appear to have a head injury. Patient was given a loading dose of Keppra as well as Ativan to help prevent seizures. Labs and imaging showed no sign of acute disease. Patient was reassured. This time is appears to be seizure. Likely from noncompliance. Patient will be started on his Keppra 1000 mg twice a day as well as gabapentin. Patient was given refills of this. Patient was told that he needs to follow with his doctor. See neurologist. No driving until cleared by neurologist. See ED worsening symptoms. Diagnosis Primary Impression: Seizure disorder Patient Instructions: General Instructions Additional Instructions: Take your medications as prescribed. Follow with your neurologist. No driving until clear by neurology. See ED for worsening symptoms. Med/Other Pt SpecificInfo: Prescription(s) given Scripts Levetiracetam (Keppra)1,000 Mg Tab1,000 Mg PO BID #60 TAB Ref 0 Prov:Clint Short MD 02/17/17 Gabapentin 300 Mg Alr275 Mg PO TID #90 CAP Ref 3 Prov:Clint Short MD 02/17/17 Disposition: 01 DISCHARGE HOME Condition: Stable Corona Dewitt Feb 17, 2017 20:12
[2017-02-17 20:25] LABS: AUTOMATED NEUTROPHIL # 4.9 TH/MM3 (1.8-7.7); BASOPHIL % 0.5 % (0.0-2.0); EOSINOPHIL # 0.2 TH/MM3 (0-0.4); EOSINOPHIL % 3.1 % (0.0-4.0); HEMATOCRIT 39.7 % (39.0-51.0); LYMPH % 23.4 % (9.0-44.0); LYMPHOCYTE # 1.8 TH/MM3 (1.0-4.8); MEAN CELL VOLUME 74.4 FL (80.0-100.0); MEAN CORPUSCULAR HEMOGLOBIN 24.4 PG (27.0-34.0); MEAN CORPUSCULAR HGB CONC 32.8 % (32.0-36.0); MONO % 10.1 % (0.0-8.0); NEUT % 62.9 % (16.0-70.0); PLATELET COUNT 341 TH/MM3 (150-450); RED BLOOD COUNT 5.33 MIL/MM3 (4.50-5.90); RED CELL DISTRIBUTION WIDTH 15.2 % (11.6-17.2); WHITE BLOOD COUNT 7.8 TH/MM3 (4.0-11.0)
[2017-02-17 20:27] LABS: HEMO FLAGS AUTO DIFF
[2017-02-17 20:38] LABS: ANION GAP 6 MEQ/L (5-15); BICARBONATE 28.4 MEQ/L (21.0-32.0); BLOOD UREA NITROGEN 14 MG/DL (7-18); CHLORIDE 105 MEQ/L (98-107); GLOMERULAR FILTRATION RATE 98 ML/MIN (>89); POTASSIUM 3.9 MEQ/L (3.5-5.1); SODIUM (NA) 139 MEQ/L (136-145)
--- NOTE | 2017-02-17 20:47 | RADRPT ---
EXAM DATE/TIME: 02/17/2017 20:06 [facility] COMPARISON: CT BRAIN W/O CONTRAST, January 17, 2013, 18:03. INDICATIONS : Seizure; contusion to the back of the head. RADIATION DOSE: 56.35 CTDIvol (mGy) MEDICAL HISTORY : Hypertension. Seizures. SURGICAL HISTORY : mandible surgery ENCOUNTER: Initial ACUITY: 1 day PAIN SCALE: 4/10 TECHNIQUE: Multiple contiguous axial images were obtained of the head. Using automated exposure control and adj ustment of the mA and/or kV according to patient size, radiation dose was kept as low as reasonably a chievable to obtain optimal diagnostic quality images. 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 There is no evidence of intracranial hemorrhage. No brain injury is identified. There is nothing to suggest acute infarction. The ventricles are symmetric and normal. Extracranial structures are benign in intact. CONCLUSION: Stable brain. No acute intracranial findings Bright Portillo MD on February 17, 2017 at 20:42 Board Certified Radiologist. This report was verified electronically.
[2017-02-17] MEDS ORDERED: KEPP10002 PO (21:00)
[2017-02-17] MEDS ORDERED: GABA300C5 PO (21:00)
[2017-02-17 21:13] LABS: PLATELET ESTIMATE SMEAR NORMAL (NORMAL); PLATELET MORPHOLOGY NORMAL (NORMAL); SCAN/DIFF AUTO DIFF CONFIRMED
[2017-02-17 23:57] VITALS: BP 103/55; PULSE 77; RESP 18; O2SAT 98
[2017-04-06] MEDS ORDERED: LISI-515 PO ×2 (10:55→10:56)
== END 2017-02-18 06:22 | disposition home or self-care (01) ==
LOC: NEPE 18:59 → NEPA 02-18 06:22
DX: R56.9 Unspecified convulsions (principal); S00.91XA Abrasion of unspecified part of head, initial encounter; I10 Essential (primary) hypertension; Z72.0 Tobacco use; X58.XXXA Exposure to other specified factors, initial encounter; Y93.9 Activity, unspecified; Y92.9 Unspecified place or not applicable; Y99.9 Unspecified external cause status; F31.9 Bipolar disorder, unspecified
CPT/HCPCS: 70450; 80048; 80307; 85025

== ENCOUNTER 2017-03-27 14:53 | Emergency (ER) | payer OTHER ==
[~2017-03-27] VITALS: Ht 182.9 cm; Wt 150.0 kg
[~2017-03-27 14:53] MED LIST changes: -LISI-515 PO
[2017-03-27 15:05] VITALS: BP 118/62; PULSE 85; RESP 16; TEMP 98.5; O2SAT 97
[2017-03-27] MEDS ORDERED: LISI-515 PO (15:10)
[2017-03-27] MEDS ORDERED: LISI40TA PO (15:10)
[2017-03-27] MEDS ORDERED: SODIUM CHLORIDE 0.9% FLUSH 10 ML FLUSH IVF PRN (15:15)
[2017-03-27] MEDS ORDERED: levETIRAcetam 500 MG TAB PO ONE (15:30)
--- NOTE | 2017-03-27 15:38 | PD ---
HPI Chief Complaint: Seizure Time Seen by Provider: 15:09 Travel History International Travel<30 days: No Contact w/Intl Traveler<30days: No Traveled to known affect area: No History of Present Illness HPI Patient's 32. He has a history of epilepsy. He takes Keppra. He reports compliance with Keppra. He was witnessed to have a seizure today while he was sitting in a parking lot. It lasted less than 1 minute. EMS notes he was alert and oriented 3 during their assessment. Location neurologic. Timing resolved. Onset sudden. PFSH Past Medical History Asthma: Yes Blood Disorders: No Bipolar Disorder: Yes Cardiovascular Problems: Yes (HTN) Diminished Hearing: No Gastrointestinal Disorders: No Headaches: Yes Heparin Induced Thrombocytopen: No Hypertension: Yes Implanted Vascular Access Dvce: No Neurologic: Yes (seizure disorder) Reproductive: No Respiratory: Yes (ASTHMA) Immunizations Current: Yes Pneumonia: Yes Seizures: Yes Past Surgical History Neurologic Surgery: No Oral Surgery: Yes (FRACTURE JAW REPAIR) Tympanostomy Tube: Yes Other Surgery: No Social History Alcohol Use: No Tobacco Use: Yes (3-4 CIGARETTES PER DAY) Substance Use: No Allergies-Medications (Allergen,Severity, Reaction): Coded Allergies: Phenergan (Verified Adverse Reaction, Severe, Psychosis, 02/17/17) Reported Meds & Prescriptions Reported Meds & Active Scripts Active Keppra (Levetiracetam) 500 Mg Tab 500 Mg PO BID Reported Lisinopril 20 Mg Tab 20 Mg PO DAILY Review of Systems Except as stated in HPI: all other systems reviewed are Neg Physical Exam Narrative GENERAL: Well-nourished well-developed male no acute distress a 32 SKIN: Warm and dry. Abrasion right supraorbital ridge. HEAD: Atraumatic. Normocephalic. EYES: Pupils equal and round. No scleral icterus. No injection or drainage. ENT: No nasal bleeding or discharge. Mucous membranes pink and moist. NECK: Trachea midline. No JVD. CARDIOVASCULAR: Regular rate and rhythm. RESPIRATORY: No accessory muscle use. Clear to auscultation. Breath sounds equal bilaterally. GASTROINTESTINAL: Abdomen soft, non-tender, nondistended. Hepatic and splenic margins not palpable. MUSCULOSKELETAL: Extremities without clubbing, cyanosis, or edema. No obvious deformities. NEUROLOGICAL: Awake and alert. No obvious cranial nerve deficits. Motor grossly within normal limits. Five out of 5 muscle strength in the arms and legs. Normal speech. PSYCHIATRIC: Appropriate mood and affect; insight and judgment normal. Data Data Last Documented VS Vital Signs Date Time Temp Pulse Resp B/P Pulse Ox O2 Delivery O2 Flow Rate FiO2 03/27/17 15:05 98.5 85 16 118/62 97 Vital signs reviewed Orders Complete Blood Count With Diff (03/27/17 15:15) Basic Metabolic Panel (Bmp) (03/27/17 15:15) Alcohol (Ethanol) (03/27/17 15:15) Drug Screen, Random Urine (03/27/17 15:15) Electrocardiogram (03/27/17 ) Blood Glucose (03/27/17 15:15) Ecg Monitoring (03/27/17 15:15) Iv Access Insert/Monitor (03/27/17 15:15) Oximetry (03/27/17 15:15) Sodium Chloride 0.9% Flush (Ns Flush) (03/27/17 15:15) Levetiracetam (Keppra) (03/27/17 15:30) MDM Medical Decision Making Medical Screen Exam Complete: Yes Emergency Medical Condition: Yes Medical Record Reviewed: Yes Differential Diagnosis Seizure, medication noncompliance, pseudoseizure, intracranial hemorrhage Narrative Course The patient requests leaving his medical advice. Evidently he has been ill a prescription outside hospital. He understands that by leaving he puts himself at risk for seizure potentially lead to the injury himself or others perhaps pedestrian struck type mechanism. Patient has verbalized understanding. He is ready for discharge. He demonstrates capacity for independent decision making. Diagnosis Primary Impression: Left against medical advice Disposition: 07 AGAINST MEDICAL ADVICE Condition: Stable Major Graham MD March 27, 2017 15:38
[2017-04-06] MEDS ORDERED: LISI-515 PO ×2 (10:55→10:56)
== END 2017-03-27 18:09 | disposition left against medical advice (07) ==
LOC: NEPE 14:53
DX: G40.909 Epilepsy, unspecified, not intractable, without status epilepticus (principal); I10 Essential (primary) hypertension; F31.9 Bipolar disorder, unspecified; Z72.0 Tobacco use
CPT/HCPCS: 99284

== ENCOUNTER 2017-05-07 00:11 | Emergency (ER) | payer OTHER ==
[~2017-05-07] VITALS: Ht 190.5 cm; Wt 155.0 kg
[~2017-05-07 00:11] MED LIST changes: -GABA300C5 PO; -KEPP10002 PO; +LISI-515 PO
[2017-05-07 00:19] VITALS: BP 122/70; PULSE 98; TEMP 98.7; O2SAT 97
[2017-05-07 00:26] VITALS: O2SAT 97
[2017-05-07] MEDS ORDERED: levETIRAcetam INJ 500 MG in SODIUM CHLORIDE 0.9% INJ 100 ML IV ONE (00:30)
[2017-05-07] MEDS ORDERED: SODIUM CHLORIDE 0.9% FLUSH 10 ML FLUSH IVF PRN (00:30)
[2017-05-07 01:20] LABS: AUTOMATED NEUTROPHIL # 4.1 TH/MM3 (1.8-7.7); BASOPHIL % 0.4 % (0.0-2.0); EOSINOPHIL # 0.4 TH/MM3 (0-0.4); EOSINOPHIL % 5.1 % (0.0-4.0); HEMATOCRIT 42.5 % (39.0-51.0); HEMO FLAGS DIFF FINAL; LYMPH % 24.1 % (9.0-44.0); LYMPHOCYTE # 1.7 TH/MM3 (1.0-4.8); MEAN CORPUSCULAR HEMOGLOBIN 24.5 PG (27.0-34.0); MEAN CORPUSCULAR HGB CONC 33.2 % (32.0-36.0); MONO % 11.2 % (0.0-8.0); NEUT % 59.2 % (16.0-70.0); PLATELET COUNT 264 TH/MM3 (150-450); RED BLOOD COUNT 5.75 MIL/MM3 (4.50-5.90); RED CELL DISTRIBUTION WIDTH 15.5 % (11.6-17.2); WHITE BLOOD COUNT 6.9 TH/MM3 (4.0-11.0)
[2017-05-07 01:36] LABS: ALT (GPT) 34 U/L (12-78); ANION GAP 6 MEQ/L (5-15); AST (GOT) 31 U/L (15-37); BICARBONATE 27.8 MEQ/L (21.0-32.0); BLOOD UREA NITROGEN 15 MG/DL (7-18); CHLORIDE 107 MEQ/L (98-107); GLOMERULAR FILTRATION RATE 84 ML/MIN (>89); SODIUM (NA) 141 MEQ/L (136-145)
[2017-05-07 01:37] LABS: ALKALINE PHOSPHATASE 89 U/L (45-117); POTASSIUM 4.3 MEQ/L (3.5-5.1); TOTAL BILIRUBIN ADULT 0.5 MG/DL (0.2-1.0)
--- NOTE | 2017-05-07 02:00 | RADRPT ---
EXAM DATE/TIME: 05/07/2017 01:26 [facility] COMPARISON: CT BRAIN W/O CONTRAST, February 17, 2017, 20:06. INDICATIONS : Seizure and fell face first onto ground. RADIATION DOSE: 56.43 CTDIvol (mGy) MEDICAL HISTORY : Hypertension. Seizures. Asthma. SURGICAL HISTORY : Mandible surgery. ENCOUNTER: Initial ACUITY: 1 day PAIN SCALE: 0/10 LOCATION: cranial TECHNIQUE: Multiple contiguous axial images were obtained of the head. Using automated exposure control and adj ustment of the mA and/or kV according to patient size, radiation dose was kept as low as reasonably a chievable to obtain optimal diagnostic quality images. FINDINGS: CEREBRUM: The ventricles are normal for age. No evidence of midline shift, mass lesion, hemorrhage or acute in farction. No extra-axial fluid collections are seen. POSTERIOR FOSSA: The cerebellum and brainstem are intact. The 4th ventricle is midline. The cerebellopontine angle i s unremarkable. EXTRACRANIAL: The visualized portion of the orbits is intact. SKULL: The calvaria is intact. No evidence of skull fracture. CONCLUSION: Negative trauma study. Mateo Jones MD on May 07, 2017 at 1:58 Board Certified Radiologist. This report was verified electronically.
--- NOTE | 2017-05-07 02:02 | RADRPT ---
EXAM DATE/TIME: 05/07/2017 01:26 [facility] COMPARISON: CT FACIAL BONES W/O CONTRAST, December 30, 2016, 14:42. INDICATIONS : Seizure and fell face first onto ground. Abrasions to right eye and right lip. RADIATION DOSE: 64.44 CTDIvol (mGy) MEDICAL HISTORY : Hypertension. Seizures. Asthma. SURGICAL HISTORY : Mandible surgery. ENCOUNTER: Initial ACUITY: 1 day PAIN SCORE: 3/10 LOCATION: Right facial TECHNIQUE: Volumetric scanning of the facial bones was performed. Using automated exposure control and adjustme nt of the mA and/or kV according to patient size, radiation dose was kept as low as reasonably achiev able to obtain optimal diagnostic quality images. FINDINGS: ORBITS: The orbital and infraorbital osseous structures are intact. The retroconal structures have a normal configuration. No radiopaque foreign bodies are seen. NASAL BONE: The nasal bone and maxillary spine are intact ZYGOMATIC ARCHES: Symmetric without evidence of fracture. SINUSES: There is mucosal thickening in the maxillary sinuses and ethmoidal air cells. There is also mucosal t hickening in the left sphenoid sinus. No air-fluid levels seen. NASAL CAVITY: The nasal septum is intact and midline. The lacrimal ducts are intact. SOFT TISSUES: No radiopaque foreign bodies seen. Soft tissue swelling over the right facial bones. INTRACRANIAL: No intracranial air seen. CRIBIFORM PLATE: Grossly intact. CONCLUSION: 1. Mucosal thickening in the paranasal sinuses with no air-fluid level. 2. No acute fracture or malalignment. The orbits are intact. Mateo Jones MD on May 07, 2017 at 1:59 Board Certified Radiologist. This report was verified electronically.
--- NOTE | 2017-05-07 02:42 | PD ---
HPI Chief Complaint: Seizure Time Seen by Provider: 00:22 Travel History International Travel<30 days: No Contact w/Intl Traveler<30days: No Traveled to known affect area: No History of Present Illness HPI Patient is a 32-year-old male who was brought in by EMS after he reportedly had a seizure. Per EMS he was being trespassed by police when he suddenly fell down to the ground and had a seizure. He has been here multiple times for this in the past. Often it is after he is being trespassed by police. He reports compliance with his Keppra. He denies any headache, back pain, neck pain. He has no complaints at this time. PFSH Past Medical History Asthma: Yes Blood Disorders: No Bipolar Disorder: Yes Cardiovascular Problems: Yes (HTN) Diminished Hearing: No Gastrointestinal Disorders: No Headaches: Yes Heparin Induced Thrombocytopen: No Hypertension: Yes Implanted Vascular Access Dvce: No Neurologic: Yes (seizure disorder) Reproductive: No Respiratory: Yes (ASTHMA) Immunizations Current: Yes Pneumonia: Yes Seizures: Yes ?: Not Past Surgical History Surgical History: No Previous Surgery Neurologic Surgery: No Oral Surgery: Yes (FRACTURE JAW REPAIR) Tympanostomy Tube: Yes Other Surgery: No Social History Alcohol Use: No Tobacco Use: Yes (3-4 CIGARETTES PER DAY) Substance Use: No Allergies-Medications (Allergen,Severity, Reaction): Coded Allergies: Phenergan (Verified Adverse Reaction, Severe, Psychosis, 02/17/17) Reported Meds & Prescriptions Reported Meds & Active Scripts Active Lisinopril 20 Mg Tab 20 Mg PO DAILY Keppra (Levetiracetam) 500 Mg Tab 500 Mg PO BID Review of Systems Except as stated in HPI: all other systems reviewed are Neg General / Constitutional: No: Fever, Chills Eyes: No: Blurred Vision HENT: No: Headaches Cardiovascular: No: Chest Pain or Discomfort Respiratory: No: Shortness of Breath Gastrointestinal: No: Nausea, Vomiting Musculoskeletal: No: Myalgias Skin: Positive Other (abrasion), No Rash Neurologic: No: Weakness, Dizziness Physical Exam Narrative GENERAL: Awake and alert, no acute distress. SKIN: Focused skin assessment warm/dry. Abrasion to the right cheek. HEAD: Atraumatic. Normocephalic. EYES: Pupils equal and round. No scleral icterus. Extraocular movements intact. ENT: Mucous membranes pink and moist. No septal hematoma. NECK: Trachea midline. No JVD. No cervical spine tenderness. CARDIOVASCULAR: Regular rate and rhythm. No murmur appreciated. RESPIRATORY: No accessory muscle use. Clear to auscultation. Breath sounds equal bilaterally. GASTROINTESTINAL: Abdomen soft, non-tender, nondistended. MUSCULOSKELETAL: No obvious deformities. No clubbing. No cyanosis. No edema. No tenderness to the thoracic or lumbar spine. NEUROLOGICAL: Awake and alert. No obvious cranial nerve deficits. Motor grossly within normal limits. Normal speech. PSYCHIATRIC: Appropriate mood and affect; insight and judgment normal. Data Data Last Documented VS Vital Signs Date Time Temp Pulse Resp B/P Pulse Ox O2 Delivery O2 Flow Rate FiO2 05/07/17 00:26 97 Room Air 05/07/17 00:19 98.7 98 122/70 Orders Complete Blood Count With Diff (05/07/17 00:22) Alcohol (Ethanol) (05/07/17 00:22) Ct Brain W/O Iv Contrast(Rout) (05/07/17 ) Blood Glucose (05/07/17 00:22) Ecg Monitoring (05/07/17 00:22) Iv Access Insert/Monitor (05/07/17 00:22) Oximetry (05/07/17 00:22) Comprehensive Metabolic Panel (05/07/17 00:22) Sodium Chloride 0.9% Flush (Ns Flush) (05/07/17 00:30) Ct Facial Bones W/O Iv Cont (05/07/17 ) Levetiracetam Inj (Keppra Inj) (05/07/17 00:30) Labs Laboratory Tests Test 05/07/17 01:05 White Blood Count 6.9 TH/MM3 Red Blood Count 5.75 MIL/MM3 Hemoglobin 14.1 GM/DL Hematocrit 42.5 % Mean Corpuscular Volume 74.0 FL Mean Corpuscular Hemoglobin 24.5 PG Mean Corpuscular Hemoglobin 33.2 % Concent Red Cell Distribution Width 15.5 % Platelet Count 264 TH/MM3 Mean Platelet Volume 8.3 FL Neutrophils (%) (Auto) 59.2 % Lymphocytes (%) (Auto) 24.1 % Monocytes (%) (Auto) 11.2 % Eosinophils (%) (Auto) 5.1 % Basophils (%) (Auto) 0.4 % Neutrophils # (Auto) 4.1 TH/MM3 Lymphocytes # (Auto) 1.7 TH/MM3 Monocytes # (Auto) 0.8 TH/MM3 Eosinophils # (Auto) 0.4 TH/MM3 Basophils # (Auto) 0.0 TH/MM3 CBC Comment DIFF FINAL Differential Comment Sodium Level 141 MEQ/L Potassium Level 4.3 MEQ/L Chloride Level 107 MEQ/L Carbon Dioxide Level 27.8 MEQ/L Anion Gap 6 MEQ/L Blood Urea Nitrogen 15 MG/DL Creatinine 1.22 MG/DL Estimat Glomerular Filtration 84 ML/MIN Rate Random Glucose 102 MG/DL Calcium Level 9.2 MG/DL Total Bilirubin 0.5 MG/DL Aspartate Amino Transf 31 U/L (AST/SGOT) Alanine Aminotransferase 34 U/L (ALT/SGPT) Alkaline Phosphatase 89 U/L Total Protein 7.8 GM/DL Albumin 3.6 GM/DL Ethyl Alcohol Level 4 MG/DL [facility] Medical Decision Making Medical Screen Exam Complete: Yes Emergency Medical Condition: Yes Medical Record Reviewed: Yes Differential Diagnosis Seizure versus head trauma versus malingering Narrative Course Patient is a 32-year-old male comes in after a seizure. Exam shows an abrasion to the face. IV established, labs sent. Labs show no acute abnormalities. CT head and facial bones performed show no acute abnormalities. Patient loaded with IV Keppra. Observed in the emergency department without any further seizures. He is advised follow-up with his doctors. Advised to return as needed for any worsening symptoms. Diagnosis Primary Impression: Seizure disorder Patient Instructions: General Instructions, Recurrent Seizures in Adults (DC) Additional Instructions: Follow up with your doctor. Return to the ED as needed for any worsening symptoms. Disposition: 01 DISCHARGE HOME Condition: Stable Hafsa Martinez MD May 07, 2017 02:42
== END 2017-05-07 03:03 | disposition home or self-care (01) ==
LOC: NEPC 00:11
DX: G40.909 Epilepsy, unspecified, not intractable, without status epilepticus (principal); I10 Essential (primary) hypertension; Z72.0 Tobacco use
CPT/HCPCS: 70450; 70486; 80053; 80307; 85025; 96374; 99285; J1953

== ENCOUNTER 2017-05-16 10:04 | Emergency (ER) | payer OTHER ==
[~2017-05-16] VITALS: Ht 190.5 cm; Wt 145.0 kg
[2017-05-16 10:07] VITALS: BP 138/75; PULSE 92; RESP 16; TEMP 98.9
--- NOTE | 2017-05-16 10:24 | PD ---
HPI Chief Complaint: Seizure Time Seen by Provider: 10:12 Travel History International Travel<30 days: No Contact w/Intl Traveler<30days: No Traveled to known affect area: No History of Present Illness HPI 32yo M with PMH of seizure disorder on keppra presents to the ED with c/o of seizure today. Pt was sitting on a bench waiting for bus when bystanders said he had a generalized tonic, clonic seizure that lasted about 5 minutes. EVAC states he was still sitting in the bench when they arrived and blood glucose was 105. Pt has right facial abrasion and right hand abrasion from seizure on and was evaluated here at [place]. States he is compliant with his keppra and follows with Dr. Velázquez. Only complaint is being sleepy. Denies any fever, headache, chest pain, sob, n/v, abdominal pain, focal weakness or numbness. PFSH Past Medical History Asthma: Yes Blood Disorders: No Bipolar Disorder: Yes Cardiovascular Problems: Yes (HTN) Diminished Hearing: No Gastrointestinal Disorders: No Headaches: Yes Heparin Induced Thrombocytopen: No Hypertension: Yes Implanted Vascular Access Dvce: No Neurologic: Yes (seizure disorder) Reproductive: No Respiratory: Yes (ASTHMA) Immunizations Current: Yes Pneumonia: Yes Seizures: Yes Past Surgical History Neurologic Surgery: No Oral Surgery: Yes (FRACTURE JAW REPAIR) Tympanostomy Tube: Yes Other Surgery: No Social History Alcohol Use: No Tobacco Use: Yes (3-4 CIGARETTES PER DAY) Substance Use: No Allergies-Medications (Allergen,Severity, Reaction): Coded Allergies: Phenergan (Verified Adverse Reaction, Severe, Psychosis, 02/17/17) Reported Meds & Prescriptions Reported Meds & Active Scripts Active Lisinopril 20 Mg Tab 20 Mg PO DAILY Keppra (Levetiracetam) 500 Mg Tab 500 Mg PO BID Review of Systems Except as stated in HPI: all other systems reviewed are Neg Physical Exam Narrative GENERAL: 32yo M not in distress. SKIN: Focused skin assessment warm/dry. HEAD: Atraumatic. Normocephalic. Right facial abrasion from 05/07/17. EYES: Pupils equal and round at 5mm bilaterally. EOMI. No scleral icterus. No injection or drainage. ENT: No nasal bleeding or discharge. Mucous membranes pink and moist. NECK: Trachea midline. No JVD. CARDIOVASCULAR: Regular rate and rhythm. No murmur appreciated. RESPIRATORY: No accessory muscle use. Clear to auscultation. Breath sounds equal bilaterally. GASTROINTESTINAL: Abdomen soft, non-tender, nondistended. MUSCULOSKELETAL: Right hand: +Small abrasion on dorsal aspect of 3rd MCP. States it was from last seizure. FROM in all digits. Radial pulse 2+. No obvious deformities. No clubbing. No cyanosis. No edema. NEUROLOGICAL: AAOx3 but sleepy. Easily arousable. No obvious cranial nerve deficits. Motor grossly within normal limits. Normal speech. PSYCHIATRIC: Appropriate mood and affect; insight and judgment normal. Data Data Last Documented VS Vital Signs Date Time Temp Pulse Resp B/P Pulse Ox O2 Delivery O2 Flow Rate FiO2 05/16/17 12:58 78 16 142/76 95 Room Air 05/16/17 10:07 98.9 Orders Complete Blood Count With Diff (05/16/17 10:18) Basic Metabolic Panel (Bmp) (05/16/17 10:18) Magnesium (Mg) (05/16/17 10:18) Sodium Chlor 0.9% 1000 Ml Inj (Ns 1000 M (05/16/17 10:30) Levetiracetam (Keppra) (05/16/17 11:45) Labs Laboratory Tests Test 05/16/17 10:12 White Blood Count 6.6 TH/MM3 Red Blood Count 5.43 MIL/MM3 Hemoglobin 13.0 GM/DL Hematocrit 40.3 % Mean Corpuscular Volume 74.2 FL Mean Corpuscular Hemoglobin 23.9 PG Mean Corpuscular Hemoglobin 32.2 % Concent Red Cell Distribution Width 16.3 % Platelet Count 281 TH/MM3 Mean Platelet Volume 7.8 FL Neutrophils (%) (Auto) 57.4 % Lymphocytes (%) (Auto) 28.1 % Monocytes (%) (Auto) 10.7 % Eosinophils (%) (Auto) 3.4 % Basophils (%) (Auto) 0.4 % Neutrophils # (Auto) 3.8 TH/MM3 Lymphocytes # (Auto) 1.9 TH/MM3 Monocytes # (Auto) 0.7 TH/MM3 Eosinophils # (Auto) 0.2 TH/MM3 Basophils # (Auto) 0.0 TH/MM3 CBC Comment DIFF FINAL Differential Comment Sodium Level 142 MEQ/L Potassium Level 3.9 MEQ/L Chloride Level 108 MEQ/L Carbon Dioxide Level 21.4 MEQ/L Anion Gap 13 MEQ/L Blood Urea Nitrogen 11 MG/DL Creatinine 1.21 MG/DL Estimat Glomerular Filtration 85 ML/MIN Rate Random Glucose 89 MG/DL Calcium Level 8.7 MG/DL Magnesium Level 2.3 MG/DL [facility] Medical Decision Making Medical Screen Exam Complete: Yes Emergency Medical Condition: Yes Differential Diagnosis Seizure in pt with seizure disorder vs. electrolyte abnormality vs. noncompliance Narrative Course 32yo M with seizure disorder here with another episode of seizure. No new trauma. Pt is AAOx3 and denies any complaints. Labs reviewed, no leukocytosis. BMP unremarkable. Magnesium 2.3. Pt has no complaints. Pt given keppra 500mg PO. Pt has been observed in the ED for almost 3 hours and has not had any seizures. Pt is back to baseline mental status. Pt is to follow up with his own neurologist. Diagnosis Primary Impression: Seizure disorder Patient Instructions: General Instructions Departure Forms: Tests/Procedures Additional Instructions: Please follow up with your neurologist in 1-2 days. Return to the ED if symptoms worsen. Med/Other Pt SpecificInfo: No Change to Meds Disposition: 01 DISCHARGE HOME Condition: Stable Deepali Harrington May 16, 2017 10:24
[2017-05-16] MEDS ORDERED: SODIUM CHLOR 0.9% 1000 ML INJ 1,000 ML IV ONE (10:30)
[2017-05-16 10:46] LABS: AUTOMATED NEUTROPHIL # 3.8 TH/MM3 (1.8-7.7); BASOPHIL % 0.4 % (0.0-2.0); EOSINOPHIL # 0.2 TH/MM3 (0-0.4); EOSINOPHIL % 3.4 % (0.0-4.0); HEMATOCRIT 40.3 % (39.0-51.0); HEMO FLAGS DIFF FINAL; LYMPH % 28.1 % (9.0-44.0); LYMPHOCYTE # 1.9 TH/MM3 (1.0-4.8); MEAN CELL VOLUME 74.2 FL (80.0-100.0); MEAN CORPUSCULAR HEMOGLOBIN 23.9 PG (27.0-34.0); MEAN CORPUSCULAR HGB CONC 32.2 % (32.0-36.0); MONO % 10.7 % (0.0-8.0); NEUT % 57.4 % (16.0-70.0); PLATELET COUNT 281 TH/MM3 (150-450); RED BLOOD COUNT 5.43 MIL/MM3 (4.50-5.90); RED CELL DISTRIBUTION WIDTH 16.3 % (11.6-17.2); WHITE BLOOD COUNT 6.6 TH/MM3 (4.0-11.0)
[2017-05-16 11:01] LABS: BICARBONATE 21.4 MEQ/L (21.0-32.0); MAGNESIUM 2.3 MG/DL (1.5-2.5); POTASSIUM 3.9 MEQ/L (3.5-5.1)
[2017-05-16] MEDS ORDERED: levETIRAcetam 500 MG TAB PO ONE (11:45)
[2017-05-16 12:58] VITALS: BP 142/76; PULSE 78; RESP 16; O2SAT 95
== END 2017-05-16 14:20 | disposition home or self-care (01) ==
LOC: NEPE 10:04
DX: G40.909 Epilepsy, unspecified, not intractable, without status epilepticus (principal); I10 Essential (primary) hypertension; Z72.0 Tobacco use
CPT/HCPCS: 80048; 83735; 85025; 96360; 99284; J7030

== ENCOUNTER 2017-05-28 08:44 | Emergency (ER) | payer OTHER ==
[~2017-05-28] VITALS: Ht 182.9 cm; Wt 150.0 kg
[2017-05-28 08:48] VITALS: PULSE 78; RESP 18; TEMP 97.9; O2SAT 96
--- NOTE | 2017-05-28 09:27 | PD ---
HPI Chief Complaint: Seizure Time Seen by Provider: :17 Travel History International Travel<30 days: No Contact w/Intl Traveler<30days: No Traveled to known affect area: No History of Present Illness HPI This patient was brought in by paramedics after a bystander thought having a seizure. He was sitting on a bench waiting for the bus. He doesn't recall any events. He says he feels fine. He has no physical complaints. He denies injury during the event. He supposed to be taking Keppra and sometimes takes it and other times not. He is a frequent visitor here for seizures. He denies headache. Symptoms severity is mild. No alleviating factors. Duration of the event is unknown PFSH Past Medical History Asthma: Yes Blood Disorders: No Bipolar Disorder: Yes Cardiovascular Problems: Yes (HTN) Diabetes: No Diminished Hearing: No Gastrointestinal Disorders: No Headaches: Yes Heparin Induced Thrombocytopen: No Hypertension: Yes Implanted Vascular Access Dvce: No Neurologic: Yes (seizure disorder) Reproductive: No Respiratory: Yes (ASTHMA) Immunizations Current: Yes Pneumonia: Yes Seizures: Yes Tetanus Vaccination: < 5 Years Influenza Vaccination: Yes Past Surgical History Neurologic Surgery: No Oral Surgery: Yes (FRACTURE JAW REPAIR) Tympanostomy Tube: Yes Other Surgery: No Social History Alcohol Use: No Tobacco Use: Yes (3-4 CIGARETTES PER DAY) Substance Use: No Allergies-Medications (Allergen,Severity, Reaction): Coded Allergies: Phenergan (Verified Adverse Reaction, Severe, Psychosis, 05/28/17) Reported Meds & Prescriptions Reported Meds & Active Scripts Active Lisinopril 20 Mg Tab 20 Mg PO DAILY Keppra (Levetiracetam) 500 Mg Tab 500 Mg PO BID Review of Systems General / Constitutional: No: Fever Eyes: No: Visual changes HENT: No: Headaches Cardiovascular: No: Chest Pain or Discomfort Respiratory: No: Shortness of Breath Gastrointestinal: No: Abdominal Pain Genitourinary: No: Dysuria Musculoskeletal: No: Pain Skin: No Rash Neurologic: Positive: Seizures, No: Weakness Psychiatric: No: Depression Endocrine: No: Polydipsia Hematologic/Lymphatic: No: Easy Bruising Physical Exam Narrative GENERAL: Well-nourished, well-developed patient in no apparent distress. SKIN: Focused skin assessment reveals no rash and nodules. Skin is Warm and dry. HEAD: Atraumatic. Normocephalic. EYES: Pupils equal and round. No scleral icterus. No injection or drainage. ENT: No nasal bleeding or discharge. Mucous membranes pink and moist. No tongue injury NECK: Trachea midline. No JVD. No midline tenderness or meningeal signs CARDIOVASCULAR: Regular rate and rhythm. No murmur appreciated. RESPIRATORY: No accessory muscle use. Clear to auscultation. Breath sounds equal bilaterally. GASTROINTESTINAL: Abdomen soft, non-tender, nondistended. Hepatic and splenic margins not palpable. MUSCULOSKELETAL: No obvious deformities. No clubbing. No cyanosis. No edema. NEUROLOGICAL: Awake and alert. No obvious cranial nerve deficits. Motor grossly within normal limits. Normal speech. PSYCHIATRIC: Appropriate mood and affect; insight and judgment reasonable. Data Data Last Documented VS Vital Signs Date Time Temp Pulse Resp B/P Pulse Ox O2 Delivery O2 Flow Rate FiO2 05/28/17 08:56 87 18 99 Room Air 05/28/17 08:48 97.9 Orders Levetiracetam (Keppra) (05/28/17 09:30) [facility] Medical Decision Making Medical Screen Exam Complete: Yes Emergency Medical Condition: Yes Medical Record Reviewed: Yes Differential Diagnosis Breakthrough seizure, noncompliance, anxiety, pseudoseizure Narrative Course I have reviewed the patient's electronic medical record. Patient's been here many times for seizures. He was here twice last month and had normal lab studies Patient has questionable compliance. I gave him a dose of Keppra here. I will observe him for while He is currently asymptomatic and neurologically intact. Patient was observed for close to 3 hours without any recurrence of symptoms Should follow-up with neurologist Diagnosis Primary Impression: Breakthrough seizure Additional Instructions: The patient was advised to follow up with their physician and return if they worsen. Med/Other Pt SpecificInfo: Other Disposition: DISCHARGE HOME Condition: Stable Darci Velázquez MD May 28, 2017 09:27
[2017-05-28] MEDS ORDERED: levETIRAcetam 500 MG TAB PO ONE (09:30)
[2017-05-28 11:46] VITALS: BP 129/74; PULSE 60; RESP 16; O2SAT 99
== END 2017-05-28 12:39 | disposition home or self-care (01) ==
LOC: NEPC 08:44
DX: R56.9 Unspecified convulsions (principal)
CPT/HCPCS: 99283

== ENCOUNTER 2017-06-04 20:28 | Emergency (ER) | payer OTHER ==
[~2017-06-04] VITALS: Ht 188 cm; Wt 136.0 kg
[2017-06-04 20:31] VITALS: BP 150/92; PULSE 91; RESP 16; TEMP 98.6; O2SAT 95
--- NOTE | 2017-06-04 20:42 | PD ---
HPI Chief Complaint: Seizure Time Seen by Provider: 20:42 Travel History International Travel<30 days: No Contact w/Intl Traveler<30days: No Traveled to known affect area: No History of Present Illness HPI 32-year-old male presents to the emergency department for evaluation after an apparent seizure. Patient has a long history of seizure and is on Keppra. He states he is compliant with his Keppra. He states he sees Dr. bone hasn't seen her in several months. Patient also reports history of hypertension some lisinopril, but states he has not taking that as prescribed. Patient states he feels fine at this time. Apparently, he had a seizure while waiting for the bus. He was found postictal. He denies any headache. No chest pain or shortness of breath. No abdominal pain. No nausea, vomiting, diarrhea. He had no incontinence or tongue biting. Patient has been seen in the emergency department multiple times for seizures. PFSH Past Medical History Asthma: Yes Blood Disorders: No Bipolar Disorder: Yes Cardiovascular Problems: Yes (HTN) Diabetes: No Diminished Hearing: No Gastrointestinal Disorders: No Headaches: Yes Heparin Induced Thrombocytopen: No Hypertension: Yes Implanted Vascular Access Dvce: No Neurologic: Yes (seizure disorder) Reproductive: No Respiratory: Yes (ASTHMA) Immunizations Current: Yes Pneumonia: Yes Seizures: Yes Past Surgical History Neurologic Surgery: No Oral Surgery: Yes (FRACTURE JAW REPAIR) Tympanostomy Tube: Yes Other Surgery: No Social History Alcohol Use: No Tobacco Use: Yes (3-4 CIGARETTES PER DAY) Substance Use: No Allergies-Medications (Allergen,Severity, Reaction): Coded Allergies: Phenergan (Verified Adverse Reaction, Severe, Psychosis, 05/28/17) Reported Meds & Prescriptions Reported Meds & Active Scripts Active Keppra (Levetiracetam) 500 Mg Tab 500 Mg PO BID Review of Systems Except as stated in HPI: all other systems reviewed are Neg Physical Exam Narrative GENERAL: Well-nourished, well-developed male patient, afebrile. SKIN: Focused skin assessment warm/dry. HEAD: Normocephalic. Atraumatic. EYES: No scleral icterus. No injection or drainage. PERRLA. EOM intact NECK: Supple, trachea midline. No JVD or lymphadenopathy. CARDIOVASCULAR: Regular rate and rhythm without murmurs, gallops, or rubs. RESPIRATORY: Breath sounds equal bilaterally. No accessory muscle use. Lungs sounds are clear to auscultation. GASTROINTESTINAL: Abdomen soft, non-tender, nondistended. MUSCULOSKELETAL: No cyanosis, or edema. Bilateral upper and lower extremity strength 5/5. All extremities are neurovascularly intact. BACK: Nontender without obvious deformity. No CVA tenderness. Data Data Last Documented VS Vital Signs Date Time Temp Pulse Resp B/P Pulse Ox O2 Delivery O2 Flow Rate FiO2 06/04/17 20:31 98.6 91 16 150/92 95 Orders Complete Blood Count With Diff (06/04/17 20:37) Electrocardiogram (06/04/17 ) Magnesium (Mg) (06/04/17 20:39) Comprehensive Metabolic Panel (06/04/17 20:40) Levetiracetam (Keppra) (06/04/17 22:30) Labs Laboratory Tests Test 06/04/17 20:40 White Blood Count 6.5 TH/MM3 Red Blood Count 5.57 MIL/MM3 Hemoglobin 13.4 GM/DL Hematocrit 41.3 % Mean Corpuscular Volume 74.1 FL Mean Corpuscular Hemoglobin 24.0 PG Mean Corpuscular Hemoglobin 32.4 % Concent Red Cell Distribution Width 16.8 % Platelet Count 275 TH/MM3 Mean Platelet Volume 8.6 FL Neutrophils (%) (Auto) 54.7 % Lymphocytes (%) (Auto) 28.5 % Monocytes (%) (Auto) 11.0 % Eosinophils (%) (Auto) 5.4 % Basophils (%) (Auto) 0.4 % Neutrophils # (Auto) 3.5 TH/MM3 Lymphocytes # (Auto) 1.9 TH/MM3 Monocytes # (Auto) 0.7 TH/MM3 Eosinophils # (Auto) 0.4 TH/MM3 Basophils # (Auto) 0.0 TH/MM3 CBC Comment DIFF FINAL Differential Comment Sodium Level 142 MEQ/L Potassium Level 4.0 MEQ/L Chloride Level 110 MEQ/L Carbon Dioxide Level 25.0 MEQ/L Anion Gap 7 MEQ/L Blood Urea Nitrogen 9 MG/DL Creatinine 1.19 MG/DL Estimat Glomerular Filtration 86 ML/MIN Rate Random Glucose 103 MG/DL Calcium Level 9.2 MG/DL Magnesium Level 2.1 MG/DL Total Bilirubin 0.4 MG/DL Aspartate Amino Transf 23 U/L (AST/SGOT) Alanine Aminotransferase 29 U/L (ALT/SGPT) Alkaline Phosphatase 79 U/L Total Protein 7.8 GM/DL Albumin 3.7 GM/DL [facility] Medical Decision Making Medical Screen Exam Complete: Yes Emergency Medical Condition: Yes Medical Record Reviewed: Yes Differential Diagnosis Recurrent seizure versus electrolyte abnormality versus noncompliance of medication Narrative Course 32-year-old male presents to the emergency department after he had apparent seizure. Patient's long history of seizures on been seen multiple occasions for seizures. Patient has no complaints at this time. CBC, CMP, magnesium, EKG are ordered and pending. CBC shows no acute abnormality. CMP shows no acute abnormality. Magnesium is 2.1. EKG shows sinus rhythm, heart rate 83, no acute ST changes. Patient was monitored in the emergency department had no seizure activity. Patient is given Keppra 500 mg by mouth. He is instructed to follow-up with his physician for management of his seizures. He verbalized agreement and understanding. The patient was discharged in stable condition with instructions, including return instructions and follow up instructions. Diagnosis Primary Impression: Breakthrough seizure Additional Impression: Seizure disorder Referrals: Primary Care Physician 2 days Patient Instructions: General Instructions, Recurrent Seizures in Adults (ED) Additional Instructions: Follow-up with your physician for better management of your seizures. Return to the emergency department for any acute worsening of symptoms. Med/Other Pt SpecificInfo: No Change to Meds Disposition: 01 DISCHARGE HOME Condition: Stable Aimee Garrido GALEN Jun 04, 2017 20:42
[2017-06-04 21:38] LABS: AUTOMATED NEUTROPHIL # 3.5 TH/MM3 (1.8-7.7); BASOPHIL % 0.4 % (0.0-2.0); EOSINOPHIL # 0.4 TH/MM3 (0-0.4); EOSINOPHIL % 5.4 % (0.0-4.0); HEMATOCRIT 41.3 % (39.0-51.0); HEMO FLAGS DIFF FINAL; LYMPH % 28.5 % (9.0-44.0); LYMPHOCYTE # 1.9 TH/MM3 (1.0-4.8); MEAN CELL VOLUME 74.1 FL (80.0-100.0); MEAN CORPUSCULAR HGB CONC 32.4 % (32.0-36.0); NEUT % 54.7 % (16.0-70.0); PLATELET COUNT 275 TH/MM3 (150-450); RED BLOOD COUNT 5.57 MIL/MM3 (4.50-5.90); RED CELL DISTRIBUTION WIDTH 16.8 % (11.6-17.2); WHITE BLOOD COUNT 6.5 TH/MM3 (4.0-11.0)
[2017-06-04 22:00] LABS: ANION GAP 7 MEQ/L (5-15); BLOOD UREA NITROGEN 9 MG/DL (7-18); CHLORIDE 110 MEQ/L (98-107); GLOMERULAR FILTRATION RATE 86 ML/MIN (>89); MAGNESIUM 2.1 MG/DL (1.5-2.5); SODIUM (NA) 142 MEQ/L (136-145)
[2017-06-04 22:01] LABS: ALT (GPT) 29 U/L (12-78); AST (GOT) 23 U/L (15-37)
[2017-06-04 22:03] LABS: ALKALINE PHOSPHATASE 79 U/L (45-117); TOTAL BILIRUBIN ADULT 0.4 MG/DL (0.2-1.0)
[2017-06-04] MEDS ORDERED: levETIRAcetam 500 MG TAB PO ONE (22:30)
[2017-06-04 23:13] VITALS: BP 129/63; PULSE 63; RESP 20; O2SAT 96
[2017-06-05 00:25] VITALS: BP 129/63; PULSE 64; RESP 20; O2SAT 96
[2017-06-05 00:32] VITALS: BP 124/66; PULSE 69; RESP 16; O2SAT 96
--- NOTE | 2017-06-05 13:19 | EKG ---
Date Performed: 06/04/2017 Time Performed: 20:55:25 PTAGE: 32 years EKG: Sinus rhythm NONSPECIFIC T-WAVE ABNORMALITY Compared to prior tracing no significant change BORDERLINE ECG PREVIOUS TRACING : 12/30/2016 17.59 DOCTOR: Baldemar Khan Interpretating Date/Time 06/05/2017 13:17:48
== END 2017-06-05 05:23 | disposition home or self-care (01) ==
LOC: NEPC 20:28 → NEPD 06-05 05:23
DX: G40.909 Epilepsy, unspecified, not intractable, without status epilepticus (principal); J45.909 Unspecified asthma, uncomplicated; I10 Essential (primary) hypertension; F31.9 Bipolar disorder, unspecified; F17.210 Nicotine dependence, cigarettes, uncomplicated
CPT/HCPCS: 80053; 83735; 85025; 93005

== ENCOUNTER 2017-06-10 12:07 | Emergency (ER) | payer OTHER ==
[~2017-06-10] VITALS: Ht 190.5 cm; Wt 160.0 kg
[~2017-06-10 12:07] MED LIST changes: -LISI-515 PO
[2017-06-10 12:15] VITALS: BP 140/66; PULSE 81; RESP 16; TEMP 98.2; O2SAT 94
[2017-06-10] MEDS ORDERED: SODIUM CHLOR 0.9% 1000 ML INJ 1,000 ML IV ONE (12:17)
[2017-06-10] MEDS ORDERED: SODIUM CHLORIDE 0.9% FLUSH 10 ML FLUSH IVF PRN (12:30)
--- NOTE | 2017-06-10 12:34 | PD ---
HPI Chief Complaint: Seizure Time Seen by Provider: 12:28 Travel History International Travel<30 days: No Contact w/Intl Traveler<30days: No Traveled to known affect area: No History of Present Illness HPI Patient is a 32-year-old male that presented from for evaluation after having a witnessed seizure. [facility] when he began seizing, he slid off the bench, there was no injury or trauma associated with it. When EMS arrived on scene patient was postictal and arousable. Patient reports compliance with his seizure medication, there was no bowel or bladder incontinence, patient did not bite his lip. Patient states that he has seizures frequently. Patient is followed by Dr. Velázquez his primary care provider. He did not see a neurologist. [facility] Past Medical History Asthma: Yes Blood Disorders: No Bipolar Disorder: Yes Diabetes: No Diminished Hearing: No Gastrointestinal Disorders: No Headaches: Yes Heparin Induced Thrombocytopen: No Hypertension: Yes Implanted Vascular Access Dvce: No Neurologic: Yes (seizure disorder) Reproductive: No Respiratory: Yes (ASTHMA) Immunizations Current: Yes Pneumonia: Yes Seizures: Yes Past Surgical History Neurologic Surgery: No Oral Surgery: Yes (FRACTURE JAW REPAIR) Tympanostomy Tube: Yes Other Surgery: No Social History Alcohol Use: No Tobacco Use: Yes (3-4 CIGARETTES PER DAY) Substance Use: No Allergies-Medications (Allergen,Severity, Reaction): Coded Allergies: Phenergan (Verified Adverse Reaction, Severe, Psychosis, 06/10/17) Reported Meds & Prescriptions Reported Meds & Active Scripts Active Keppra (Levetiracetam) 500 Mg Tab 500 Mg PO BID Review of Systems Except as stated in HPI: all other systems reviewed are Neg Neurologic: Positive: Seizures Physical Exam Narrative GENERAL: Obese, well-developed, alert male. SKIN: Warm and dry. HEAD: Atraumatic. Normocephalic. EYES: Pupils equal and round. No scleral icterus. No injection or drainage. ENT: No nasal bleeding or discharge. Mucous membranes pink and moist. NECK: Trachea midline. No JVD. CARDIOVASCULAR: Regular rate and rhythm. RESPIRATORY: No accessory muscle use. Clear to auscultation. Breath sounds equal bilaterally. GASTROINTESTINAL: Abdomen soft, non-tender, nondistended. Hepatic and splenic margins not palpable. MUSCULOSKELETAL: Extremities without clubbing, cyanosis, or edema. No obvious deformities. NEUROLOGICAL: Awake and alert. No obvious cranial nerve deficits. Motor grossly within normal limits. Five out of 5 muscle strength in the arms and legs. Normal speech. PSYCHIATRIC: Flat mood and affect; insight and judgment normal. Data Data Last Documented VS Vital Signs Date Time Temp Pulse Resp B/P Pulse Ox O2 Delivery O2 Flow Rate FiO2 06/10/17 12:19 Room Air 06/10/17 12:15 98.2 81 16 140/66 94 Orders Complete Blood Count With Diff (06/10/17 12:17) Drug Screen, Random Urine (06/10/17 12:17) Electrocardiogram (06/10/17 ) Blood Glucose (06/10/17 12:17) Ecg Monitoring (06/10/17 12:17) Iv Access Insert/Monitor (06/10/17 12:17) Oximetry (06/10/17 12:17) Comprehensive Metabolic Panel (06/10/17 12:17) Sodium Chlor 0.9% 1000 Ml Inj (Ns 1000 M (06/10/17 12:17) Sodium Chloride 0.9% Flush (Ns Flush) (06/10/17 12:30) Urinalysis - C+S If Indicated (06/10/17 12:17) Levetiracetam (06/10/17 12:17) MDM Medical Decision Making Medical Screen Exam Complete: Yes Emergency Medical Condition: Yes Medical Record Reviewed: Yes Interpretation(s) Vital Signs Date Time Temp Pulse Resp B/P Pulse Ox O2 Delivery O2 Flow Rate FiO2 06/10/17 12:19 Room Air 06/10/17 12:15 98.2 81 16 140/66 94 Differential Diagnosis Arrhythmia versus noncompliance versus electrolyte abnormality versus seizure disorder versus other Narrative Course Patient is a 32-year-old male presenting via EMS for evaluation after a witnessed seizure. Patient is postictal, his vital signs are stable. Labs ordered and pending. 1240-patient became aggressive, refusing treatment. He was verbally threatening , physically threatening. Patient elected not to continue care. AMA: The risks of leaving against medical advice without further evaluation treatment were discussed with the patient. These risks include cardiac dysfunction, cardiac dysrhythmia, possible heart attack, possible stroke or . The patient indicated understanding of these risks and appeared to have the capacity to make this decision. He was escorted out of the emergency department with security. He was alert, ambulating safely. Diagnosis Primary Impression: Left against medical advice Disposition: 07 AGAINST MEDICAL ADVICE Kadie Brooks Jun 10, 2017 12:34
[2017-06-10] MEDS ORDERED: LEVE500 PO (21:30)
[2017-06-11] MEDS ORDERED: IBUP800T23 PO (19:15)
== END 2017-06-10 12:41 | disposition left against medical advice (07) ==
LOC: NEPD 12:07
DX: G40.909 Epilepsy, unspecified, not intractable, without status epilepticus (principal)
CPT/HCPCS: 99283

== ENCOUNTER 2017-06-10 18:35 | Emergency (ER) | payer OTHER ==
[~2017-06-10] VITALS: Ht 190.5 cm; Wt 157.0 kg
[2017-06-10 19:09] VITALS: BP 134/80; PULSE 65; RESP 18; TEMP 98.8; O2SAT 100
[2017-06-10] MEDS ORDERED: SODIUM CHLOR 0.9% 1000 ML INJ 1,000 ML IV ONE (19:10)
[2017-06-10] MEDS ORDERED: SODIUM CHLORIDE 0.9% FLUSH 10 ML FLUSH IVF PRN (19:15)
[2017-06-10] MEDS ORDERED: levETIRAcetam 1000 MG INJ 100 ML IV ONE (19:15)
--- NOTE | 2017-06-10 19:23 | PD ---
HPI Chief Complaint: Seizure Time Seen by Provider: 19:04 Travel History International Travel<30 days: No Contact w/Intl Traveler<30days: No Traveled to known affect area: No History of Present Illness HPI The patient is a 32-year-old [place] male who presents emergency department via EMS after a seizure. The patient states he was seen in the emergency department earlier today for seizure, states he was discharged, went to the mall, subsequently had another seizure. The patient states he must fell backwards and hit his head, complains of a headache with pain in the posterior aspect of his head as well as neck pain. The patient states he was prescribed Her 5 mg twice a day, but is been noncompliant with his medication and states that he was unable to find a physician to refill his prescription. The patient states he currently lives with his grandmother, however, she cannot come to the emergency department pick him up because she does not have a car. The patient complains of a headache and neck pain, also complains of mild trauma to the tongue. He denies any urinary or fecal incontinence. The patient denies any weakness of the upper or lower extremities. PFSH Past Medical History Asthma: Yes Blood Disorders: No Bipolar Disorder: Yes Diabetes: No Diminished Hearing: No Gastrointestinal Disorders: No Headaches: Yes Heparin Induced Thrombocytopen: No Hypertension: Yes Implanted Vascular Access Dvce: No Neurologic: Yes (seizure disorder) Reproductive: No Respiratory: Yes (ASTHMA) Immunizations Current: Yes Pneumonia: Yes Seizures: Yes Past Surgical History Neurologic Surgery: No Oral Surgery: Yes (FRACTURE JAW REPAIR) Tympanostomy Tube: Yes Other Surgery: No Social History Alcohol Use: No Tobacco Use: Yes (3-4 CIGARETTES PER DAY) Substance Use: No Allergies-Medications (Allergen,Severity, Reaction): Coded Allergies: Phenergan (Verified Adverse Reaction, Severe, Psychosis, 06/10/17) Reported Meds & Prescriptions Reported Meds & Active Scripts Active Keppra (Levetiracetam) 500 Mg Tab 500 Mg PO BID Review of Systems Except as stated in HPI: all other systems reviewed are Neg HENT: Positive: Headaches, Neck Pain Cardiovascular: No: Chest Pain or Discomfort Respiratory: No: Shortness of Breath Gastrointestinal: No: Nausea, Vomiting, Abdominal Pain Neurologic: Positive: Headache, Seizures, No: Focal Abnormalities Physical Exam Narrative GENERAL: Eyes close, opens eyes and responds to verbal questions, nontoxic- appearing 32-year-old male who appears his stated age and is lying on his right side. He refuses to lie in his back for examination secondary to his neck pain. SKIN: Focused skin assessment warm/dry. HEAD: Patient has a small area of blood in the posterior occipital area, I cannot visualize a large laceration. EYES: Pupils equal and round. Pupils are 4 mm bilateral, sclerae injected bilaterally. ENT: No nasal bleeding or discharge. Mucous membranes pink and moist. NECK: Trachea midline. No JVD. No midline tenderness, mild paravertebral tenderness. CARDIOVASCULAR: Regular rate and rhythm. No murmur appreciated. RESPIRATORY: No accessory muscle use. Clear to auscultation. Breath sounds equal bilaterally. GASTROINTESTINAL: Abdomen soft, non-tender, nondistended. Obese, no rebound tenderness. MUSCULOSKELETAL: No obvious deformities. No clubbing. No cyanosis. No edema. NEUROLOGICAL: Eyes close, will answer questions, but refuses to perform a full neurologic examination. PSYCHIATRIC: Slightly agitated. Data Data Last Documented VS Vital Signs Date Time Temp Pulse Resp B/P Pulse Ox O2 Delivery O2 Flow Rate FiO2 06/10/17 20:38 100 Room Air 06/10/17 19:09 98.8 65 18 134/[address] Brain W/O Iv Contrast(Rout) (06/10/17 ) Blood Glucose (06/10/17 19:10) Ecg Monitoring (06/10/17 19:10) Iv Access Insert/Monitor (06/10/17 19:10) Oximetry (06/10/17 19:10) Sodium Chlor 0.9% 1000 Ml Inj (Ns 1000 M (06/10/17 19:10) Sodium Chloride 0.9% Flush (Ns Flush) (06/10/17 19:15) Ct Cerv Spine W/O Contrast (06/10/17 ) Levetiracetam 1000 Mg Inj (Keppra 1000 M (06/10/17 19:15) Levetiracetam (Keppra) (06/10/17 20:30) MDM Medical Decision Making Medical Screen Exam Complete: Yes Emergency Medical Condition: Yes Medical Record Reviewed: Yes Interpretation(s) Last Impressions Head CT 06/10/17 0000 Signed Impressions: Service Date/Time: Saturday, June 10, 2017 20:37 - CONCLUSION: Unremarkable study. Mc De La Fuente MD Cervical Spine CT 06/10/17 0000 Signed Impressions: Service Date/Time: Saturday, June 10, 2017 20:37 - CONCLUSION: Osteophyte formations particularly involving C5 vertebrae chronic in nature not changed since the prior examination. No acute process. Mc De La Fuente MD Differential Diagnosis Differential diagnosis includes seizure disorder, breakthrough seizure, noncompliance, closed head injury, intracranial hemorrhage, cervical fracture, abrasion, laceration, contusion. Narrative Course IV and labs were ordered, and the patient was placed on cardiac telemetry monitoring and continuous pulse oximetry monitoring. CT of the brain and cervical spine were ordered. The patient refused IV, therefore, I reviewed the EMR. The patient had labs performed on June 04 which was unremarkable. Therefore, patient was administered oral Keppra as he refused IV placement. CT of the brain and cervical spine revealed no acute changes, the wound to the posterior aspect of the have a superficial, no indication for sutures. The patient will be discharged home with a prescription for his Keppra, he is advised to follow-up with a primary physician and/or neurologist. Diagnosis Primary Impression: Seizure disorder Additional Impression: Non-compliance Patient Instructions: General Instructions Additional Instructions: Follow-up with a primary physician and/or neurologist. Return if symptoms worsen or progress. Wound care instructions. Med/Other Pt SpecificInfo: Prescription(s) given Scripts Levetiracetam (Keppra)500 Mg [id number] Mg PO BID #60 TAB Ref 0 Prov:Chino Leone MD 06/10/17 Disposition: 01 DISCHARGE HOME Condition: Stable Chino Leone MD Jun 10, 2017 19:23
[2017-06-10] MEDS ORDERED: levETIRAcetam 500 MG TAB PO ONE (20:30)
[2017-06-10 20:38] VITALS: O2SAT 100
--- NOTE | 2017-06-10 20:57 | RADRPT ---
EXAM DATE/TIME: 06/10/2017 20:37 [facility] COMPARISON: CT BRAIN W/O CONTRAST, November 24, 2014, 0:00. CT BRAIN W/O CONTRAST, May 07, 2017, 1:26. INDICATIONS : Seizure. RADIATION DOSE: 50.73 CTDIvol (mGy) MEDICAL HISTORY : Seizures. SURGICAL HISTORY : None. ENCOUNTER: Initial ACUITY: 1 day PAIN SCALE: 5/10 LOCATION: occipital TECHNIQUE: Multiple contiguous axial images were obtained of the head. Using automated exposure control and adj ustment of the mA and/or kV according to patient size, radiation dose was kept as low as reasonably a chievable to obtain optimal diagnostic quality images. DICOM format image data is available electro nically for review and comparison. FINDINGS: There is no evidence for intracranial hemorrhage, mass effect, mass lesions, edema, or extra-axial fl uid collections. The visualized bony structures appear intact. The ventricles are normal size for t he patient's age. There are no signs of acute infarction for technique. CONCLUSION: Unremarkable study. Mc De La Fuente MD on June 10, 2017 at 20:54 Board Certified Radiologist. This report was verified electronically.
--- NOTE | 2017-06-10 21:19 | RADRPT ---
EXAM DATE/TIME: 06/10/2017 20:37 [facility] COMPARISON: CT CERVICAL SPINE W/O CONTRAST, December 30, 2016, 14:44. INDICATIONS : Seizure; patient complains of neck pain. RADIATION DOSE: 26.37 CTDIvol (mGy) MEDICAL HISTORY : Seizures. SURGICAL HISTORY : None. ENCOUNTER: Initial ACUITY: 1 day PAIN SCALE: 7/10 LOCATION: neck TECHNIQUE: Volumetric scanning of the cervical spine was performed. Multiplanar reconstructions in the sagittal, coronal and oblique axial planes were performed. Using automated exposure control and adjustment o f the mA and/or kV according to patient size, radiation dose was kept as low as reasonably achievable to obtain optimal diagnostic quality images. DICOM format image data is available electronically f or review and comparison. FINDINGS: No significant subluxation or soft tissue swelling is seen. Slightly degenerative change with osteoph yte formation is present in disc spaces of C5-6 and C6-7 and osteophyte coming off the anterior super ior endplate of C5 which has a lucent line interface with the endplate most likely chronic. C2-C3: No appreciable compromised to the thecal sac, exiting nerve roots are seen. The neural mary tushar are patent bilaterally. No appreciable thecal sac stenosis is seen. C3-C4: No appreciable compromised to the thecal sac, exiting nerve roots are seen. The neural mary tushar are patent bilaterally. No appreciable thecal sac stenosis is seen. C4-C5: No appreciable compromised to the thecal sac, exiting nerve roots are seen. The neural mary tushar are patent bilaterally. No appreciable thecal sac stenosis is seen. C5-C6: There is no evidence for any significant compromise to the thecal sac, or the exiting nerve ro ots. No appreciable thecal sac stenosis is seen. The neural foramina and lateral recess appear larios nt bilaterally.. C6-C7: No appreciable compromised to the thecal sac, exiting nerve roots are seen. The neural mary tushar are patent bilaterally. No appreciable thecal sac stenosis is seen. C7-T1: No appreciable compromised to the thecal sac, exiting nerve roots are seen. The neural mary tushar are patent bilaterally. No appreciable thecal sac stenosis is seen CONCLUSION: Osteophyte formations particularly involving C5 vertebrae chronic in nature not changed s [place] the prior examination. No acute process. Mc De La Fuente MD on June 10, 2017 at 21:12 Board Certified Radiologist. This report was verified electronically.
[2017-06-10] MEDS ORDERED: LEVE500 PO (21:30)
[2017-06-11] MEDS ORDERED: IBUP800T23 PO (19:15)
== END 2017-06-11 01:37 | disposition home or self-care (01) ==
LOC: NEPD 18:35
DX: G40.909 Epilepsy, unspecified, not intractable, without status epilepticus (principal); Z91.19 Patient's noncompliance with other medical treatment and regimen
CPT/HCPCS: 70450; 72125; 99285

== ENCOUNTER 2017-06-11 16:00 | Emergency (ER) | payer OTHER ==
[~2017-06-11] VITALS: Ht 190.5 cm; Wt 158.0 kg
[2017-06-11 16:20] VITALS: BP 203/93; PULSE 98; RESP 24; TEMP 97.8; O2SAT 96
[2017-06-11] MEDS ORDERED: IBUP800T23 PO (19:15)
--- NOTE | 2017-06-11 19:15 | PD ---
HPI . Neck pain Chief Complaint: Back/ Neck Pain or Injury Time Seen by Provider: 18:57 Travel History International Travel<30 days: No Contact w/Intl Traveler<30days: No Traveled to known affect area: No History of Present Illness HPI This patient presents to us via [facility] with the chief complaint of neck pain. The patient reports that he had a seizure yesterday and was seen here. He states that he had a CT scan done. He states that he has subsequently developed a pins and needle type sensation in his neck. He states that he has not taken anything for it. States that his symptoms are severe. No modifying factors. PFSH Past Medical History Asthma: Yes Blood Disorders: No Bipolar Disorder: Yes Diabetes: No Diminished Hearing: No Gastrointestinal Disorders: No Headaches: Yes Heparin Induced Thrombocytopen: No Hypertension: Yes Implanted Vascular Access Dvce: No Neurologic: Yes (seizure disorder) Reproductive: No Respiratory: Yes (ASTHMA) Immunizations Current: Yes Pneumonia: Yes Seizures: Yes Tetanus Vaccination: < 5 Years Past Surgical History Surgical History: No Previous Surgery Neurologic Surgery: No Oral Surgery: Yes (FRACTURE JAW REPAIR) Tympanostomy Tube: Yes Other Surgery: No Social History Alcohol Use: No Tobacco Use: Yes (3-4 CIGARETTES PER DAY) Substance Use: No Allergies-Medications (Allergen,Severity, Reaction): Coded Allergies: Phenergan (Verified Adverse Reaction, Severe, Psychosis, 06/11/17) Reported Meds & Prescriptions Reported Meds & Active Scripts Active Keppra (Levetiracetam) 500 Mg Tab 500 Mg PO BID Keppra (Levetiracetam) 500 Mg Tab 500 Mg PO BID Review of Systems Except as stated in HPI: all other systems reviewed are Neg HENT: Positive: Neck Pain Neurologic: No: Weakness, Focal Abnormalities, Paresthesia Physical Exam Narrative GENERAL: Awake and alert and in no acute distress. SKIN: Warm and dry. HEAD: Atraumatic. Normocephalic. EYES: Pupils equal and round. NECK: Trachea midline. Diffuse neck tenderness. No point tenderness. CARDIOVASCULAR: Regular rate and rhythm. RESPIRATORY: No accessory muscle use. MUSCULOSKELETAL: No obvious deformities. No edema. NEUROLOGICAL: Awake and alert. No obvious cranial nerve deficits. Motor grossly within normal limits. Normal speech. He has full and equal muscle strength in all muscle groups of his upper extremities. PSYCHIATRIC: Appropriate mood and affect; insight and judgment normal. Data Data Last Documented VS Vital Signs Date Time Temp Pulse Resp B/P Pulse Ox O2 Delivery O2 Flow Rate FiO2 06/11/17 19:06 20 06/11/17 16:20 97.8 98 203/93 96 Room Air MDM Medical Decision Making Medical Screen Exam Complete: Yes Emergency Medical Condition: Yes Medical Record Reviewed: Yes ( was seen here twice yesterday. He had a CT of the C-spine which showed osteophyte formation.) Differential Diagnosis Differential diagnosis of neck pain includes but is not limited to muscle spasm/ pain, arthritis, spinal stenosis, HNP, epidural abscess Narrative Course This patient presents with atraumatic neck pain. He had a CT of his neck done here yesterday which showed osteophyte formation. He is neurologically intact. The history, exam, diagnostic testing, and current condition do not suggest any significant pathology to warrant further testing, continued ED treatment, admission, or surgical evaluation at this point. The patient's condition is stable and appropriate for discharge. Diagnosis Primary Impression: Neck pain Patient Instructions: Acute Neck Pain (ED), General Instructions Med/Other Pt SpecificInfo: Prescription(s) given Scripts Ibuprofen 800 Mg [id number] Mg PO Q8H PRN (Pain/Inflammation) #60 TAB Ref 0 Prov:Joelle Velez MD 06/11/17 Disposition: 01 DISCHARGE HOME Condition: Stable Joelle Velez MD Jun 11, 2017 19:15
== END 2017-06-11 19:46 | disposition home or self-care (01) ==
LOC: NEPD 16:00
DX: M54.2 Cervicalgia (principal); J45.909 Unspecified asthma, uncomplicated; F31.9 Bipolar disorder, unspecified; I10 Essential (primary) hypertension; G40.909 Epilepsy, unspecified, not intractable, without status epilepticus; F17.210 Nicotine dependence, cigarettes, uncomplicated; Z79.899 Other long term (current) drug therapy
CPT/HCPCS: 99283

== ENCOUNTER 2017-09-12 08:43 | Emergency (ER) | payer OTHER ==
[~2017-09-12] VITALS: Ht 188 cm; Wt 169.1 kg
[~2017-09-12 08:43] MED LIST changes: +IBUP800T23 PO
[2017-09-12 08:56] VITALS: BP 141/72; PULSE 87; RESP 18; TEMP 98.2; O2SAT 96
[2017-09-12] MEDS ORDERED: LISI2.5T3 PO (08:56)
--- NOTE | 2017-09-12 09:09 | PD ---
HPI Chief Complaint: Seizure Time Seen by Provider: 09:08 Travel History International Travel<30 days: No Contact w/Intl Traveler<30days: No Traveled to known affect area: No History of Present Illness HPI 32-year-old male came to the emergency room with history of a seizure episode while [place] The bystanders called 911 after they witnessed him having seizure. He was combative and postictal while he was being transported in the ambulance. Patient has history of seizure disorder and in fact has been seen multiple times in the emergency department. He does not want to take seizure medication or his blood pressure medication. He has been given patient assistance and medication payment option which costs $7 a month for the Keppra but patient has chosen not to utilize this benefit and be on the medication. He is answering questions but sleepy and in a classic postictal state. Vital signs are stable otherwise. No obvious injuries. PFSH Past Medical History Narrative Medical List of his past medical, surgical, social and family history is reviewed from the nursing note. Asthma: Yes Blood Disorders: No Bipolar Disorder: Yes Cardiovascular Problems: Yes (HTN) Cerebrovascular Accident: No Diabetes: No Diminished Hearing: No Gastrointestinal Disorders: No Headaches: Yes Hiatal Hernia: No Heparin Induced Thrombocytopen: No Hypertension: Yes Implanted Vascular Access Dvce: No Neurologic: Yes (seizure disorder) Reproductive: No Respiratory: Yes (ASTHMA) Immunizations Current: Yes Pneumonia: Yes Seizures: Yes Tetanus Vaccination: < 5 Years Influenza Vaccination: Yes Past Surgical History Neurologic Surgery: No Oral Surgery: Yes (FRACTURE JAW REPAIR) Tympanostomy Tube: Yes Other Surgery: No Social History Alcohol Use: No Tobacco Use: Yes (3-4 CIGARETTES PER DAY) Substance Use: No Allergies-Medications (Allergen,Severity, Reaction): Coded Allergies: promethazine (Verified Adverse Reaction, Severe, Psychosis, 09/12/17) Comments List of his allergies reviewed from the nursing note. Reported Meds & Prescriptions Reported Meds & Active Scripts Active Ibuprofen 800 Mg Tab 800 Mg PO Q8H PRN Keppra (Levetiracetam) 500 Mg Tab 500 Mg PO BID Reported Lisinopril 2.5 Mg Tab 2.5 Mg PO DAILY Narrative Medication List of his home medications reviewed from the nursing note. Review of Systems Except as stated in HPI: all other systems reviewed are Neg Neurologic: Positive: Seizures Physical Exam Narrative GENERAL: Awake, alert, obese, groggy, slurred speech but answering questions slowly but appropriately SKIN: Focused skin assessment warm/dry. HEAD: Atraumatic. Normocephalic. EYES: Pupils equal and round. No scleral icterus. No injection or drainage. ENT: No nasal bleeding or discharge. Mucous membranes pink and moist. NECK: Trachea midline. No JVD. CARDIOVASCULAR: Regular rate and rhythm. No murmur appreciated. RESPIRATORY: No accessory muscle use. Clear to auscultation. Breath sounds equal bilaterally. GASTROINTESTINAL: Abdomen soft, non-tender, nondistended. Hepatic and splenic margins not palpable. MUSCULOSKELETAL: No obvious deformities. No clubbing. No cyanosis. No edema. NEUROLOGICAL: Awake and alert. No obvious cranial nerve deficits. Motor grossly within normal limits. Normal speech. PSYCHIATRIC: Appropriate mood and affect; insight and judgment normal. Data Data Last Documented VS Orders Orders Ed Discharge Order (09/12/17 10:38) MDM Medical Decision Making Medical Screen Exam Complete: Yes Emergency Medical Condition: Yes Medical Record Reviewed: Yes Differential Diagnosis Epilepsy, seizures, medication noncompliance Narrative Course 10:41 AM I will observe the patient for more than an hour in my department. I don't see any point of giving him any further medication treatment in the emergency room since he has obviously chosen not to medicate himself as an outpatient. At this point I will discharge him home. Procedures EKG Prior to Arrival: No Diagnosis Primary Impression: Seizure disorder Additional Impression: Noncompliance with medication regimen Referrals: Primary Care Physician Additional Instructions: You should take the medication prescription that has been given to you for your seizure disorder like is supposed to in order to stop getting the seizures. It is dangerous especially when you a crossing the street or otherwise since there is a very high risk of accident and injuries. Return to the ER if the condition worsens or any other new concerns. Disposition: 01 DISCHARGE HOME Condition: Stable Delgado Lantigua MD Sep 12, 2017 09:09
[2017-09-12 11:18] VITALS: BP 138/76
== END 2017-09-12 11:19 | disposition home or self-care (01) ==
LOC: NEPE 08:43
DX: G40.909 Epilepsy, unspecified, not intractable, without status epilepticus (principal); Z91.14 Patient's other noncompliance with medication regimen
CPT/HCPCS: 99283

== ENCOUNTER 2017-09-12 15:40 | Emergency (ER) | payer OTHER ==
[~2017-09-12 15:40] MED LIST changes: +LISI2.5T3 PO
[2017-09-12] MEDS ORDERED: SODIUM CHLORIDE 0.9% FLUSH 10 ML FLUSH IV FLUSH PRN (15:45)
[2017-09-12] MEDS ORDERED: SODIUM CHLOR 0.9% 1000 ML INJ 1,000 ML IV SCH (15:45)
[2017-09-12] MEDS ORDERED: levETIRAcetam 1000 MG INJ 100 ML IV ONE (15:45)
--- NOTE | 2017-09-12 15:54 | PD ---
HPI Chief Complaint: seizure Time Seen by Provider: 15:45 Travel History International Travel<30 days: No Contact w/Intl Traveler<30days: No Traveled to known affect area: No History of Present Illness HPI 32-year-old well known Afro[place] male with seizure disorder presents to emergency department via EMS again for witnessed seizure on the [place]. Patient was just released with similar presentation earlier today. Reportedly his previous note it was stated that the patient has been noncompliant with his Keppra dosage. Patient is alert and vocal and combative. Patient states he has not been noncompliant with his Keppra dose. Patient refuses any medical assistance at this time. Patient is verbally abusive. Patient is allergic to promethazine. PFSH Past Medical History Asthma: Yes Blood Disorders: No Bipolar Disorder: Yes Cardiovascular Problems: Yes (HTN) Cerebrovascular Accident: No Diabetes: No Diminished Hearing: No Gastrointestinal Disorders: No Headaches: Yes Hiatal Hernia: No Heparin Induced Thrombocytopen: No Hypertension: Yes Implanted Vascular Access Dvce: No Neurologic: Yes (seizure disorder) Reproductive: No Respiratory: Yes (ASTHMA) Immunizations Current: Yes Pneumonia: Yes Seizures: Yes Past Surgical History Neurologic Surgery: No Oral Surgery: Yes (FRACTURE JAW REPAIR) Tympanostomy Tube: Yes Other Surgery: No Social History Alcohol Use: No Tobacco Use: Yes (3-4 CIGARETTES PER DAY) Substance Use: No Allergies-Medications (Allergen,Severity, Reaction): Coded Allergies: promethazine (Verified Adverse Reaction, Severe, Psychosis, 09/12/17) Reported Meds & Prescriptions Reported Meds & Active Scripts Active Ibuprofen 800 Mg Tab 800 Mg PO Q8H PRN Keppra (Levetiracetam) 500 Mg Tab 500 Mg PO BID Reported Lisinopril 2.5 Mg Tab 2.5 Mg PO DAILY Review of Systems ROS Limitations: Uncooperative, Refused, Combative General / Constitutional: No: Fever Eyes: No: Visual changes HENT: No: Headaches Cardiovascular: No: Chest Pain or Discomfort Respiratory: No: Shortness of Breath Gastrointestinal: No: Abdominal Pain Genitourinary: No: Dysuria Musculoskeletal: No: Pain Skin: No Rash Neurologic: No: Weakness Psychiatric: No: Depression Endocrine: No: Polydipsia Hematologic/Lymphatic: No: Easy Bruising Physical Exam Exam Limitations: Uncooperative, Refused, Combative Narrative GENERAL: Patient is alert and oriented 3. SKIN: Warm and dry. No obvious signs of trauma. HEAD: Atraumatic. Normocephalic. EYES: Pupils equal and round. No scleral icterus. No injection or drainage. ENT: No nasal bleeding or discharge. Mucous membranes pink and moist. NECK: Trachea midline. Supple CARDIOVASCULAR: Regular rate and rhythm. RESPIRATORY: No accessory muscle use. Clear to auscultation. Breath sounds equal bilaterally. MUSCULOSKELETAL: Extremities without clubbing, cyanosis, or edema. No obvious deformities. NEUROLOGICAL: Awake and alert. No obvious cranial nerve deficits. Motor grossly within normal limits. Five out of 5 muscle strength in the arms and legs. Normal speech. PSYCHIATRIC: Appropriate mood and affect; insight and judgment normal. Data Data Orders Orders Basic Metabolic Panel (Bmp) (09/12/17 15:45) Complete Blood Count With Diff (09/12/17 15:45) Urinalysis - C+S If Indicated (09/12/17 15:45) Sodium Chlor 0.9% 1000 Ml Inj (Ns 1000 M (09/12/17 15:45) Sodium Chloride 0.9% Flush (Ns Flush) (09/12/17 15:45) Electrocardiogram (09/12/17 15:45) Ckmb (Isoenzyme) Profile (09/12/17 15:45) Levetiracetam 1000 Mg Inj (Keppra 1000 M (09/12/17 15:45) MDM Medical Decision Making Medical Screen Exam Complete: Yes Emergency Medical Condition: Yes Medical Record Reviewed: Yes Differential Diagnosis Seizure disorder. Noncompliance. Combative. Narrative Course Patient is escorted from the emergency department by security to refusing medical assistance. Patient left AMA. Diagnosis Primary Impression: Left against medical advice Additional Impression: Seizure disorder Disposition: 07 AGAINST MEDICAL ADVICE Condition: Stable Moncho Mason Sep 12, 2017 15:53
== END 2017-09-12 15:50 | disposition left against medical advice (07) ==
LOC: NEPC 15:40
DX: G40.909 Epilepsy, unspecified, not intractable, without status epilepticus (principal); Z91.14 Patient's other noncompliance with medication regimen
CPT/HCPCS: 99283